=== PATIENT | female | born 1945 | race American Indian/Alaskan Native ===

== ENCOUNTER 2017-03-14 22:50 | Emergency (ER) | payer OTHER ==
[2017-03-14 23:27] VITALS: RESP 16; TEMP 98.2; O2SAT 100
[2017-03-15 01:09] LABS: BASO % 0.5 % (0.0-2.0); EOS % 0.6 % (0.0-4.0); HEMATOCRIT 36.8 % (34.0-47.0); LYMPH # 1.5 K/uL (1.0-4.3); LYMPH % 23.2 % (20.0-40.0); MEAN CELL VOLUME 89.2 fL (81.0-99.0); MEAN CORPUSCULAR HEMOGLOBIN 29.1 pg (27.0-31.0); MEAN CORPUSCULAR HGB CONC 32.6 g/dL (33.0-37.0); MEAN PLATELET VOLUME 10.4 fL (7.2-11.7); MONO # 0.4 K/uL (0.0-0.8); MONO % 5.6 % (0.0-10.0); NRBC % 0.1 % (0.0-2.0); WHITE BLOOD COUNT 6.6 K/uL (4.8-10.8)
[2017-03-15 01:21] LABS: CHLORIDE 98 mmol/L (98-107); POTASSIUM 5.1 mmol/L (3.6-5.2); SODIUM 138 mmol/L (132-148)
[2017-03-15 01:23] LABS: BILIRUBIN,TOTAL < 0.1 mg/dL (0.2-1.3); CARBON DIOXIDE 30 mmol/L (22-30); GFR AFRICAN-AMERICAN > 60
[2017-03-15 01:24] LABS: ALB/GLOB RATIO 1.4 (1.0-2.1); ALKALINE PHOSPHATASE 64 U/L (38-126); ALT/SGPT 20 U/L (9-52); AST/SGOT 17 U/L (14-36); BLOOD UREA NITROGEN 15 mg/dL (7-17); CALCIUM 9.3 mg/dl (8.6-10.4); GLUCOSE,RANDOM 166 mg/dL (65-105)
[2017-03-15 02:07] VITALS: BP 140/67; PULSE 78
--- NOTE | 2017-03-15 02:26 | C.PDOC ---
History Of Present Illness A 71 y/o female presents to the ER c/o left upper and left lateral chest wall pain earlier today. Pt notes no pain currently reporting that the pain comes and goes. Pt denies fever, chills, Shortness of breath, nausea, vomiting, palpitations, or any other complaints. Time Seen by Provider: 03/15/17 00:24 Chief Complaint (Nursing): Upper Extremity Problem/Injury History Per: Patient History/Exam Limitations: no limitations Onset/Duration Of Symptoms: Hrs Current Symptoms Are (Timing): Still Present Severity: Mild Recent travel outside of the [place]: No Additional History Per: Patient Past Medical History Reviewed: Historical Data, Nursing Documentation, Vital Signs Vital Signs: Last Vital Signs Temp 98.2 F 03/14/17 23:24 Pulse 78 03/15/17 01:30 Resp 16 03/15/17 01:30 BP 140/67 03/15/17 01:30 Pulse Ox 100 03/15/17 02:50 - Medical History PMH: Diabetes, HTN, Hyperlipidemia Family History: States: Unknown Family Hx - Social History Hx Alcohol Use: No Hx Substance Use: No - Immunization History Hx Tetanus Toxoid Vaccination: No Hx Influenza Vaccination: No Hx Pneumococcal Vaccination: No Review Of Systems Except As Marked, All Systems Reviewed And Found Negative. Constitutional: Negative for: Fever, Chills Cardiovascular: Positive for: Chest Pain (left upper and left lateral chest wall pain). Negative for: Palpitations Respiratory: Negative for: Shortness of Breath Gastrointestinal: Negative for: Nausea, Vomiting Physical Exam - Physical Exam Appears: Non-toxic, No Acute Distress Skin: Warm, Dry Head: Atraumatic, Normacephalic Eye(s): bilateral: Normal Inspection, EOMI Cardiovascular: Rhythm Regular, No Murmur Respiratory: Normal Breath Sounds, No Rales, No Wheezing Gastrointestinal/Abdominal: Soft, No Tenderness Extremity: Normal ROM, No Pedal Edema, No Deformity, No Swelling Neurological/Psych: Oriented x3, Normal Speech, Normal Cognition ED Course And Treatment - Laboratory Results Result Diagrams: 03/15/17 01:04 03/15/17 01:04 ECG: Interpreted By Me, Viewed By Me ECG Rhythm: Sinus Rhythm ECG Interpretation: Normal, No Acute Changes Interpretation Of ECG: NSR, normal tracings Rate From EC O2 Sat by Pulse Oximetry: 100 (RA) Pulse Ox Interpretation: Normal Medical Decision Making Medical Decision Making: Impression: 71 y/o c/o chest pain that began today Plans: -EKG -CXR -IV fluids -Reassess and disposition Patient is resting comfortably, is no longer having chest pain or shortness of breath. Patient has no risk factors for pulmonary emboli or DVT. Clinical presentation is not suggestive of aortic dissection. Patient is being discharged home and is being advised to follow up with physician/clinic in 1-2 days. Disposition Counseled Patient/Family Regarding: Diagnosis - Disposition Referrals: [facility] at [facility] [Outside] Disposition: HOME/ ROUTINE Disposition Time: 02:51 Condition: STABLE Instructions: Noncardiac Chest Pain (ED) - POA Present On Arrival: None - Clinical Impression Clinical Impression: Chest pain - Scribe Statement The provider has reviewed the documentation as recorded by the Scribe Sonai castro All medical record entries made by the Scribe were at my direction and personally dictated by me. I have reviewed the chart and agree that the record accurately reflects my personal performance of the history, physical exam, medical decision making, and the department course for this patient. I have also personally directed, reviewed, and agree with the discharge instructions and disposition.
--- NOTE | 2017-03-15 09:11 | RAD ---
HISTORY: chest pain COMPARISON: No prior. TECHNIQUE: Chest PA and lateral FINDINGS: LUNGS: Prominent lung markings. No evidence of focal consolidation. PLEURA: No significant pleural effusion identified. No pneumothorax apparent. CARDIOVASCULAR: Mild cardiomegaly. OSSEOUS STRUCTURES: No significant abnormalities. VISUALIZED UPPER ABDOMEN: Normal. OTHER FINDINGS: None. IMPRESSION: Mild cardiomegaly and pulmonary vascular congestion.
--- NOTE | 2017-03-17 06:44 | CARD ---
APPROVED REPORT EKG Measurement Heart [id number] <Conclusion> Normal sinus rhythm Normal ECG
== END 2017-03-15 02:58 | disposition home or self-care (01) ==
LOC: C.ER 22:50
DX: R07.9 Chest pain, unspecified (principal); I10 Essential (primary) hypertension; E78.5 Hyperlipidemia, unspecified; E11.9 Type 2 diabetes mellitus without complications

== ENCOUNTER 2017-10-20 22:45 | Inpatient (IN) | payer OTHER ==
[2017-10-20 22:46] VITALS: BMI 38.4
[2017-10-20] MEDS ORDERED: Alum-Mag Hydrox-Simethicone Susp (30 mL) PO STA (23:24)
[2017-10-20 23:38] LABS: BASO % 0.3 % (0.0-2.0); EOS % 0.3 % (0.0-4.0); HEMATOCRIT 34.4 % (34.0-47.0); LYMPH # 1.2 K/uL (1.0-4.3); LYMPH % 16.4 % (20.0-40.0); MEAN CORPUSCULAR HEMOGLOBIN 29.9 pg (27.0-31.0); MEAN CORPUSCULAR HGB CONC 34.3 g/dL (33.0-37.0); MEAN PLATELET VOLUME 9.5 fL (7.2-11.7); MONO # 0.4 K/uL (0.0-0.8); MONO % 5.1 % (0.0-10.0); RED CELL DISTRIBUTION WIDTH 13.9 % (11.5-14.5); WHITE BLOOD COUNT 7.4 K/uL (4.8-10.8)
[2017-10-20] MEDS ORDERED: Alum-Mag Hydrox-Simethicone Susp (30 mL) ONE (23:38)
[2017-10-20 23:45] LABS: MEAN CELL VOLUME 87.2 fL (81.0-99.0)
[2017-10-21] LABS: ALKALINE PHOSPHATASE 67 U/L (38-126); ALT/SGPT 18 U/L (9-52); AST/SGOT 14 U/L (14-36); BILIRUBIN,TOTAL 0.6 mg/dL (0.2-1.3); BLOOD UREA NITROGEN 11 mg/dL (7-17); CALCIUM 9.1 mg/dl (8.6-10.4); CARBON DIOXIDE 30 mmol/L (22-30); CHLORIDE 96 mmol/L (98-107); GFR AFRICAN-AMERICAN > 60; GLUCOSE,RANDOM 175 mg/dL (65-105); POTASSIUM 4.3 mmol/L (3.6-5.2); SODIUM 135 mmol/L (132-148); TOTAL PROTEIN 8.5 g/dL (6.3-8.3)
--- NOTE | 2017-10-21 00:07 | C.PDOC ---
Time Seen by Provider: 10/20/17 23:14 Chief Complaint (Nursing): Abdominal Pain History Per: Patient, Family Onset/Duration Of Symptoms: Days (about 1-2 weeks) Current Symptoms Are (Timing): Still Present Severity: Moderate Location Of Pain/Discomfort: Epigastric Quality Of Discomfort: Unable To Describe Associated Symptoms: Nausea Exacerbating Factors: Food Alleviating Factors: None Additional History Per: Prior Records Past Medical History Reviewed: Historical Data, Nursing Documentation, Vital Signs Vital Signs: Last Vital Signs Temp 99.0 F 10/20/17 22:59 Pulse 82 10/20/17 22:59 Resp 18 10/20/17 22:59 BP 160/84 H 10/20/17 22:59 Pulse Ox 96 10/21/17 00:07 - Medical History PMH: Diabetes, HTN, Hypercholesterolemia, Hyperlipidemia Family History: States: Unknown Family Hx - Social History Hx Alcohol Use: No Hx Substance Use: No - Immunization History Hx Tetanus Toxoid Vaccination: No Hx Influenza Vaccination: No Hx Pneumococcal Vaccination: No Review Of Systems Except As Marked, All Systems Reviewed And Found Negative. Constitutional: Negative for: Fever, Weakness Cardiovascular: Negative for: Chest Pain Respiratory: Negative for: Shortness of Breath Gastrointestinal: Negative for: Vomiting, Diarrhea, Melena, Hematochezia, Hematemesis Genitourinary: Negative for: Dysuria Musculoskeletal: Negative for: Neck Pain, Back Pain Skin: Negative for: Rash Neurological: Negative for: Weakness, Numbness Physical Exam - Physical Exam Appears: Non-toxic, No Acute Distress Skin: Normal Color, Warm, Dry, No Rash Head: Atraumatic, Normacephalic Eye(s): bilateral: Normal Inspection, PERRL, EOMI Neck: Normal ROM, Supple Cardiovascular: Rhythm Regular Respiratory: Normal Breath Sounds, No Accessory Muscle Use Gastrointestinal/Abdominal: Soft, Tenderness (epigastric), No Guarding, No Rebound Back: No CVA Tenderness Extremity: Normal ROM Neurological/Psych: Oriented x3, Normal Motor, Normal Sensation ED Course And Treatment - Laboratory Results Result Diagrams: 10/20/17 23:35 10/20/17 23:35 Lab Interpretation: Abnormal Interpretation Of Abnormal: Elevated Lipase O2 Sat by Pulse Oximetry: 96 Pulse Ox Interpretation: Normal Disposition - Disposition Disposition Time: 00:57 Condition: FAIR - Clinical Impression Clinical Impression: Acute pancreatitis Physician Patient Turnover Patient Signed Over To: Norman Stevenson Handoff Comments: to f/up CT abd/pelv and admit pt to hospital.
[2017-10-21] MEDS ORDERED: Sodium Chloride 0.9% 1,000 ML IV ONE (00:52)
[2017-10-21] MEDS ORDERED: Iodixanol 320 MG/ML 100 ML BOTTLE IV ONE (01:43)
--- NOTE | 2017-10-21 02:13 | CT ---
EXAM: CT Abdomen and Pelvis With Intravenous Contrast CLINICAL HISTORY: 72 years old, female; Pain; Abdominal pain; Prior surgery; Surgery type: Colon ca; Additional info: Acute pancreatitis TECHNIQUE: Axial computed tomography images of the abdomen and pelvis with intravenous contrast. All CT scans at this facility use one or more dose reduction techniques, viz.: automated exposure control; ma/kV adjustment per patient size (including targeted exams where dose is matched to indication; i.e. head); or iterative reconstruction technique. Coronal and sagittal reformatted images were created and reviewed. CONTRAST: 100 mL of [id number] administered intravenously. COMPARISON: No relevant prior studies available. FINDINGS: Lower thorax: There is minimal bibasilar atelectasis. Small hiatal hernia. ABDOMEN: Liver: There are no focal liver lesions present. Gallbladder and bile ducts: The gallbladder is normal. No calcified stones. No ductal dilation. Pancreas: The pancreatic duct is somewhat prominent measuring 4 mm proximally. It is difficult to exclude underlying lesion in the region of the pancreatic head. The pancreatic head does appear mildly prominent as well. Please correlate clinically if indicated this could be further evaluated with MRCP or ERCP. Spleen: The spleen is normal. Adrenals: The adrenal glands are normal. Kidneys and ureters: Right kidney demonstrates a few subcentimeter hypodensities which are too small to adequately characterize. There is no evidence of hydronephrosis. Stomach and bowel: The stomach is normal. Colonic constipation is present. There is no evidence of intestinal obstruction. No mucosal thickening. Appendix: No findings to suggest acute appendicitis. PELVIS: Bladder: Bladder is decompressed. Reproductive: Uterus is enlarged and heterogeneous with numerous coarse calcifications compatible with multi-fibroid uterus with calcified fibroids. ABDOMEN and PELVIS: Intraperitoneal space: There is no evidence of free intraperitoneal fluid. There is no free intraperitoneal air. Bones/joints: There are moderate degenerative changes present. No acute fracture. No dislocation. Soft tissues: There is a small fat containing periumbilical hernia. Vasculature: The aorta demonstrates mild atherosclerotic calcification. No abdominal aortic aneurysm. Lymph nodes: There is no evidence of lymphadenopathy. Other findings: Small cyst in the left upper pole measures 12 mm. IMPRESSION: 1. The pancreatic duct is somewhat prominent measuring 4 mm proximally. It is difficult to exclude underlying lesion in the region of the pancreatic head. The pancreatic head does appear mildly prominent as well. Please correlate clinically if indicated this could be further evaluated with MRCP or ERCP. 2. Additional incidental and/or chronic findings as described.
[2017-10-21 02:14] LABS: ALCOHOL SERUM < 10 mg/dl (0-10); CHOLESTEROL 139 mg/dL (0-199)
[2017-10-21] MEDS ORDERED: Sodium Chloride 0.9% 1,000 ML IV SCH (03:45)
[2017-10-21] MEDS: (Novolog) Insulin Aspart, Recombinant 100 u/ml 10 ml vial SC SCH ×4 (08:59→21:53)
[2017-10-21] MEDS ORDERED: Enoxaparin 30 mg Syringe SC SCH (10:00)
--- NOTE | 2017-10-21 10:05 | CP.PCM.CON ---
<Laurence Conrad - Last Filed: 10/21/17 14:22> History of Present Illness - History of Present Illness History of Present Illness: GI Consult note for Dr. Roman 72 year old female PMHx colon ca s/p surgical resection in 2006 at [facility], HTN, HLD, and DM2 presents with 1 week of epigastric pain, bloating, and a "growling " feeling for 1 week. Patient states the pain began with no inciting event and is not related to PO intake. She rated the pain 7/10 and described it as a burning/soreness. Patient's pain was non radiating and localized to her epigastric region. She admitted to some nausea but denied any vomiting, diarrhea , constipation, change in appetite. Patient did not try anything for the pain and reported nothing made it better or worse. Patient did not come to ED earlier as she believed it would resolve spontaneously. On encounter patient stated her pain was a 4/10 and improved since admission and she was eager to eat. On ROS she denied any fever, chills, headache, dizziness, chest pain, palpitations, SOB, cough, pain/swelling in her legs bilaterally, and weight loss. She did admit to some sweats. Patient cannot recall when she last saw her surgeon Dr. Paez and heme/onc Dr. Nai Solitario. PMHx: HTN, HLD, DM2, colon cancer s/p surgical resection in 2006 at [facility] FamHx: father with esophageal ca SocialHx: denies EtOH, tobacco, and drug use PProcedures: colonoscopy 10 years ago in 2006 and patient had multiple follow ups but cannot remember when Review of Systems - Review of Systems All systems: reviewed and no additional remarkable complaints except - Constitutional Constitutional: As Per HPI. absent: Chills, Fever, Weight Loss, Weakness - EENT Eyes: As Per HPI. absent: Blurred Vision Ears: As Per HPI. absent: Dizziness Nose/Mouth/Throat: As Per HPI. absent: Sore Throat - Cardiovascular Cardiovascular: As Per HPI. absent: Chest Pain, Dyspnea on Exertion, Edema, Palpitations - Respiratory Respiratory: As Per HPI. absent: Cough, Dyspnea, Dyspnea on Exertion - Gastrointestinal Gastrointestinal: As Per HPI, Abdominal Pain (epigastric abd pain/soreness), Bloating, Heartburn. absent: Coffee Ground Emesis, Constipation, Diarrhea, Hematemesis, Melena, Nausea, Vomiting - Genitourinary Genitourinary: As Per HPI. absent: Dysuria, Hematuria, Pyuria - Musculoskeletal Musculoskeletal: As Per HPI. absent: Back Pain, Numbness, Tingling - Integumentary Integumentary: As Per HPI. absent: Rash - Neurological Neurological: As Per HPI. absent: Dizziness, Headaches, Tingling, Weakness - Endocrine Endocrine: As Per HPI. absent: Palpitations, Polydipsia, Polyphagia, Polyuria - Hematologic/Lymphatic Hematologic: As Per HPI. absent: Easy Bleeding, Easy Bruising, Lymphadenopathy Past Patient History - Infectious Disease Hx of Infectious Diseases: None - Past Medical History & Family History Past Medical History?: Yes - Past Social History Smoking Status: Never Smoked - CARDIAC Hx Hypercholesterolemia: Yes Hx Hypertension: Yes - PULMONARY Hx Respiratory Disorders: No - NEUROLOGICAL Hx Neurological Disorder: No - HEENT Hx HEENT Problems: No - RENAL Hx Chronic Kidney Disease: No - ENDOCRINE/METABOLIC Hx Endocrine Disorders: Yes Hx Diabetes Mellitus Type 2: Yes Other/Comment: diabetes - HEMATOLOGICAL/ONCOLOGICAL Hx Blood Disorders: No - INTEGUMENTARY Hx Dermatological Problems: No - MUSCULOSKELETAL/RHEUMATOLOGICAL Hx Falls: No - GASTROINTESTINAL Hx Gastrointestinal Disorders: No - GENITOURINARY/GYNECOLOGICAL Hx Genitourinary Disorders: No - PSYCHIATRIC Hx Psychophysiologic Disorder: No Hx Substance Use: No - SURGICAL HISTORY Hx Surgeries: Yes Other/Comment: Colon CA- remission - ANESTHESIA Hx Anesthesia: Yes Hx Anesthesia Reactions: No Hx Malignant Hyperthermia: No Meds Allergies/Adverse Reactions: Allergies Allergy/AdvReac Type Severity Reaction Status Date / Time No Known Allergies Allergy Verified 10/20/17 23:08 - Medications Medications: Current Medications Carbamide Peroxide (Debrox Ear Drops) 0 ml AU BID [facility] Enoxaparin Sodium (Lovenox) 40 mg SC DAILY [facility] Sodium Chloride (Sodium Chloride 0.9%) 1,000 mls @ 70 mls/hr IV .[id number] [facility] Last Admin: 10/21/17 04:43 Dose: 70 mls/hr Insulin Aspart (Novolog) 0 unit SC ACHS [facility] PRN Reason: Protocol Lisinopril (Zestril) 30 mg PO DAILY [facility] Pantoprazole Sodium (Protonix Inj) 40 mg IVP DAILY [facility] Physical Exam - Constitutional Appears: Well, Non-toxic, No Acute Distress - Head Exam Head Exam: ATRAUMATIC, NORMAL INSPECTION, NORMOCEPHALIC - Eye Exam Eye Exam: EOMI, Normal appearance, PERRL. absent: Conjunctival injection, Scleral icterus - ENT Exam ENT Exam: Mucous Membranes Moist - Neck Exam Neck exam: Positive for: Full Rom, Normal Inspection - Respiratory Exam Respiratory Exam: Clear to Auscultation Bilateral, NORMAL BREATHING PATTERN. absent: Accessory Muscle Use, Rales, Rhonchi, Wheezes, Respiratory Distress - Cardiovascular Exam Cardiovascular Exam: REGULAR RHYTHM, RRR, +S1, +S2 - GI/Abdominal Exam GI & Abdominal Exam: Normal Bowel Sounds, Soft, Tenderness (slight to palpation in epigastric area). absent: Firm, Guarding, Rigid - Extremities Exam Extremities exam: Positive for: normal inspection, pedal pulses present. Negative for: pedal edema, tenderness - Back Exam Back exam: NORMAL INSPECTION. absent: tenderness - Neurological Exam Neurological exam: Alert, Oriented x3 - Psychiatric Exam Psychiatric exam: Normal Affect, Normal Mood - Skin Skin Exam: Dry, Intact, Normal Color, Warm Results - Vital Signs Recent Vital Signs: Last Vital Signs Temp 98.6 F 10/21/17 08:34 Pulse 80 10/21/17 08:34 Resp 20 10/21/17 08:34 BP 140/68 10/21/17 08:34 Pulse Ox 97 10/21/17 08:34 - Labs Result Diagrams: 10/20/17 23:35 10/20/17 23:35 Labs: Laboratory Results - last 24 hr 10/20/17 10/20/17 10/21/17 23:35 23:35 01:06 WBC 7.4 RBC 3.95 Hgb 11.8 Hct 34.4 MCV 87.2 D MCH 29.9 MCHC 34.3 RDW 13.9 Plt Count 130 MPV 9.5 Neut % (Auto) 77.9 H Lymph % (Auto) 16.4 L Buchanan % (Auto) 5.1 Eos % (Auto) 0.3 Baso % (Auto) 0.3 Neut # 5.7 Lymph # 1.2 Buchanan # 0.4 Eos # 0.0 Baso # 0.0 Sodium 135 Potassium 4.3 Chloride 96 L Carbon Dioxide 30 Anion Gap 14 BUN 11 Creatinine 0.7 Est GFR ( Amer) > 60 Est GFR (Non-Af Amer) > 60 Random Glucose 175 H Calcium 9.1 Total Bilirubin 0.6 AST 14 ALT 18 Alkaline Phosphatase 67 Troponin I < 0.0120 Total Protein 8.5 H Albumin 4.2 Globulin 4.4 H Albumin/Globulin Ratio 1.0 Triglycerides 78 Cholesterol 139 LDL Cholesterol Direct 74 HDL Cholesterol 46 Lipase 9589 H Alcohol, Quantitative < 10 Assessment & Plan - Assessment and Plan (Free Text) Assessment: 72 year old female PMHx colon ca s/p surgical resection in 2006 at [facility], HTN, HLD, and DM2 presents with 1 week of epigastric pain, bloating, and a "growling " feeling for 1 week Plan: - patient had elevated lipase 9589 on admission - LR @ 250cc - CT abd/pelvis: pancreatic duct in somewhat prominent measuring 4mm proximally. It is difficult to exclude underlying lesion in the region of the pancreatic head. The pancreatic head does appear mildly prominent as well. - Lipid panel WNL - f/u Abd u/s - f/u IgG4 - started patient on low fat HHD with mod consistent carb - monitor BUN and hematocrit - recommend EUS in 1 month after pancreatitis flare subsides - Heme/onc following GI will continue to follow Discussed with Dr. Jessie Conrad PGY2 <Jay Roman - Last Filed: 10/21/17 16:29> Meds - Medications Medications: Current Medications Carbamide Peroxide (Debrox Ear Drops) 0 ml AU BID [facility] Last Admin: 10/21/17 10:02 Dose: Not Given Enoxaparin Sodium (Lovenox) 40 mg SC DAILY [facility] Lactated Ringer's (Lactated Ringer's) 1,000 mls @ 250 mls/hr IV .Q4H [facility] Last Admin: 10/21/17 13:21 Dose: 250 mls/hr Insulin Aspart (Novolog) 0 unit SC ACHS [facility] PRN Reason: Protocol Last Admin: 10/21/17 11:33 Dose: Not Given Lisinopril (Zestril) 30 mg PO DAILY [facility] Pantoprazole Sodium (Protonix Inj) 40 mg IVP DAILY [facility] Last Admin: 10/21/17 10:59 Dose: 40 mg Results - Vital Signs Recent Vital Signs: Last Vital Signs Temp 98.6 F 10/21/17 15:00 Pulse 71 10/21/17 15:00 Resp 20 10/21/17 15:00 BP 135/78 10/21/17 15:00 Pulse Ox 97 10/21/17 15:00 - Labs Result Diagrams: 10/20/17 23:35 10/20/17 23:35 Labs: Laboratory Results - last 24 hr 10/20/17 10/20/17 10/21/17 23:35 23:35 01:06 WBC 7.4 RBC 3.95 Hgb 11.8 Hct 34.4 MCV 87.2 D MCH 29.9 MCHC 34.3 RDW 13.9 Plt Count 130 MPV 9.5 Neut % (Auto) 77.9 H Lymph % (Auto) 16.4 L Buchanan % (Auto) 5.1 Eos % (Auto) 0.3 Baso % (Auto) 0.3 Neut # 5.7 Lymph # 1.2 Buchanan # 0.4 Eos # 0.0 Baso # 0.0 Sodium 135 Potassium 4.3 Chloride 96 L Carbon Dioxide 30 Anion Gap 14 BUN 11 Creatinine 0.7 Est GFR ( Amer) > 60 Est GFR (Non-Af Amer) > 60 Random Glucose 175 H Calcium 9.1 Total Bilirubin 0.6 AST 14 ALT 18 Alkaline Phosphatase 67 Troponin I < 0.0120 Total Protein 8.5 H Albumin 4.2 Globulin 4.4 H Albumin/Globulin Ratio 1.0 Triglycerides 78 Cholesterol 139 LDL Cholesterol Direct 74 HDL Cholesterol 46 Lipase 9589 H Alcohol, Quantitative < 10 Attending/Attestation - Attestation I have personally seen and examined this patient.: Yes I have fully participated in the care of the patient.: Yes I have reviewed all pertinent clinical information: Yes Notes (Text): 10/21/17 16:27 72 year old female h/o colon cancer s/p resection, HTN, HLD, DM, Obesity admitted with epigastric pain 2/2 acute pancreatitis. 1. Acute pancreatitis 2. Pancreatic duct dilation Plan: - recommend aggressive IV hydration with LR as above x 24 hours,then reduce to maintenance fluids -advance to low fat diet since she is pain free -uncertain etiology, check US abdomen r/o gallstones and IGG4 -she will need outpatient eus in 1 month to r/o underlying panc lesion
[2017-10-21] MEDS: Lactated Ringer's 1,000 ML IV SCH ×3 (13:21→20:39)
--- NOTE | 2017-10-21 13:34 | CP.PCM.CON ---
History of Present Illness - History of Present Illness History of Present Illness: 72 year old female with a history of DM, HTN, HL, colon cancer s/p surgical resection in 2006 at [facility], admitted with pancreatitis and possible pancreatic head mass. The patient reports to epigastric pain associated with nausea for about 3-4 days. She has not had much of an appetite but denies weightloss. A CT scan suggested a possible pancreatic head mass. Pat medical history: DM, HTN, HL, colon cancer s/p surgical resection in 2006 at [facility] Past surgical history: Colon resection Family history: Denies hematologic and oncologic problems Social history: Denies tobacco, alcohol, and illicit drug use. Allergies: NKA Review of systems: All remaining review of systems including HEENT, cardiovacular, respiratory, gastrointestinal, genitoruinary, musculoskeletal, dermatologic, neurologic, and psychiatric are negative unless mentioned in the HPI. Past Patient History - Infectious Disease Hx of Infectious Diseases: None - Past Medical History & Family History Past Medical History?: Yes - Past Social History Smoking Status: Never Smoked - CARDIAC Hx Hypercholesterolemia: Yes Hx Hypertension: Yes - PULMONARY Hx Respiratory Disorders: No - NEUROLOGICAL Hx Neurological Disorder: No - HEENT Hx HEENT Problems: No - RENAL Hx Chronic Kidney Disease: No - ENDOCRINE/METABOLIC Hx Endocrine Disorders: Yes Hx Diabetes Mellitus Type 2: Yes Other/Comment: diabetes - HEMATOLOGICAL/ONCOLOGICAL Hx Blood Disorders: No - INTEGUMENTARY Hx Dermatological Problems: No - MUSCULOSKELETAL/RHEUMATOLOGICAL Hx Falls: No - GASTROINTESTINAL Hx Gastrointestinal Disorders: No - GENITOURINARY/GYNECOLOGICAL Hx Genitourinary Disorders: No - PSYCHIATRIC Hx Psychophysiologic Disorder: No Hx Substance Use: No - SURGICAL HISTORY Hx Surgeries: Yes Other/Comment: Colon CA- remission - ANESTHESIA Hx Anesthesia: Yes Hx Anesthesia Reactions: No Hx Malignant Hyperthermia: No Meds Allergies/Adverse Reactions: Allergies Allergy/AdvReac Type Severity Reaction Status Date / Time No Known Allergies Allergy Verified 10/20/17 23:08 - Medications Medications: Current Medications Carbamide Peroxide (Debrox Ear Drops) 0 ml AU BID [facility] Last Admin: 10/21/17 10:02 Dose: Not Given Enoxaparin Sodium (Lovenox) 40 mg SC DAILY [facility] Lactated Ringer's (Lactated Ringer's) 1,000 mls @ 250 mls/hr IV .Q4H [facility] Last Admin: 10/21/17 13:21 Dose: 250 mls/hr Insulin Aspart (Novolog) 0 unit SC ACHS [facility] PRN Reason: Protocol Last Admin: 10/21/17 11:33 Dose: Not Given Lisinopril (Zestril) 30 mg PO DAILY [facility] Pantoprazole Sodium (Protonix Inj) 40 mg IVP DAILY [facility] Last Admin: 10/21/17 10:59 Dose: 40 mg Physical Exam - Head Exam Head Exam: ATRAUMATIC - Eye Exam Eye Exam: Normal appearance - ENT Exam ENT Exam: Mucous Membranes Dry - Respiratory Exam Respiratory Exam: NORMAL BREATHING PATTERN - Cardiovascular Exam Cardiovascular Exam: +S1, +S2 - GI/Abdominal Exam GI & Abdominal Exam: Normal Bowel Sounds - Neurological Exam Neurological exam: Oriented x3 - Psychiatric Exam Psychiatric exam: Normal Affect, Normal Mood Results - Vital Signs Recent Vital Signs: Last Vital Signs Temp 98.6 F 10/21/17 08:34 Pulse 80 10/21/17 08:34 Resp 20 10/21/17 08:34 BP 140/68 10/21/17 08:34 Pulse Ox 97 10/21/17 08:34 - Labs Result Diagrams: 10/22/17 08:33 10/22/17 08:33 Labs: Laboratory Results - last 24 hr 10/20/17 10/20/17 10/21/17 23:35 23:35 01:06 WBC 7.4 RBC 3.95 Hgb 11.8 Hct 34.4 MCV 87.2 D MCH 29.9 MCHC 34.3 RDW 13.9 Plt Count 130 MPV 9.5 Neut % (Auto) 77.9 H Lymph % (Auto) 16.4 L Castro % (Auto) 5.1 Eos % (Auto) 0.3 Baso % (Auto) 0.3 Neut # 5.7 Lymph # 1.2 Castro # 0.4 Eos # 0.0 Baso # 0.0 Sodium 135 Potassium 4.3 Chloride 96 L Carbon Dioxide 30 Anion Gap 14 BUN 11 Creatinine 0.7 Est GFR ( Amer) > 60 Est GFR (Non-Af Amer) > 60 Random Glucose 175 H Calcium 9.1 Total Bilirubin 0.6 AST 14 ALT 18 Alkaline Phosphatase 67 Troponin I < 0.0120 Total Protein 8.5 H Albumin 4.2 Globulin 4.4 H Albumin/Globulin Ratio 1.0 Triglycerides 78 Cholesterol 139 LDL Cholesterol Direct 74 HDL Cholesterol 46 Lipase 9589 H Alcohol, Quantitative < 10 Assessment & Plan (1) Pancreatic abnormality Assessment and Plan: GI evaluation ? related to pancreatitis Status: Acute (2) Anemia Assessment and Plan: mild will check iron, b12, folate stores Thank you for this interesting consult. Status: Acute
--- NOTE | 2017-10-21 19:39 | US ---
EXAM: US Abdomen Complete EXAM DATE/TIME: Exam ordered 10/21/2017 12:46 PM CLINICAL HISTORY: 72 years old, female; Pain; Abdominal pain; Generalized; Patient HX: Panc head limited seen . pt had CT today please see CT report; Additional info: Abd pain TECHNIQUE: Real-time ultrasound of the abdomen (complete) with image documentation. COMPARISON: CT - ABD PELVIS IV CONTRAST ONLY 2017-10-21 01:48 FINDINGS: Liver: The liver measures 14.7 cm in craniocaudal span. There is normal blood flow direction in the main portal vein. The echotexture of the liver is mildly increased. No intrahepatic bile duct dilation. Gallbladder: Unremarkable. No gallstones. Common bile duct: The common bile duct measures 3 mm. No stones. No dilation. Pancreas: The pancreatic duct at the level of the neck of the pancreas measures 0.36 cm. The inferior and medial borders of the pancreatic head are not well seen. Kidneys: The right kidney measures 8.7 x 3.7 x 4.3 cm. The left kidney measures 9.4 x 4.5 x 4.4 cm. A simple cyst is seen in the upper pole the left kidney measuring 1.7 cm in maximal diameter. No stones. No hydronephrosis. Spleen: The spleen measures 12 cm in craniocaudal span. Aorta: Unremarkable. No aneurysm. Inferior vena cava: Unremarkable. IMPRESSION: 1. Dilatation of the pancreatic duct. Differential diagnostic considerations include distal stricture or neoplasm. Note is made that the inferior and medial border of the pancreas is not clearly delineated due to bowel gas. 2. Mildly echogenic liver suggests underlying fatty infiltration. 3. Left renal cyst.
--- NOTE | 2017-10-21 20:16 | CP.PCM.HP ---
History of Present Illness - History of Present Illness History of Present Illness: 72 yo F with PMH of DM, HTN, HLD, h/o Colon Ca presents to ED with epigastric abdominal pain ongoing for 1-2 weeks with associated nausea. Pt denies fever, chills, chest pain, dyspnea, vomiting or diarrhea. Pt noted to have lipase of [address] abdomen done and significant for suspicious pancreatic duct lesion. Present on Admission - Present on Admission Any Indicators Present on Admission: No Review of Systems - Gastrointestinal Gastrointestinal: Abdominal Pain Past Patient History - Infectious Disease Hx of Infectious Diseases: None - Past Medical History & Family History Past Medical History?: Yes - Past Social History Smoking Status: Never Smoked - CARDIAC Hx Hypercholesterolemia: Yes Hx Hypertension: Yes - PULMONARY Hx Respiratory Disorders: No - NEUROLOGICAL Hx Neurological Disorder: No - HEENT Hx HEENT Problems: No - RENAL Hx Chronic Kidney Disease: No - ENDOCRINE/METABOLIC Hx Endocrine Disorders: Yes Hx Diabetes Mellitus Type 2: Yes Other/Comment: diabetes - HEMATOLOGICAL/ONCOLOGICAL Hx Blood Disorders: No - INTEGUMENTARY Hx Dermatological Problems: No - MUSCULOSKELETAL/RHEUMATOLOGICAL Hx Falls: No - GASTROINTESTINAL Hx Gastrointestinal Disorders: No - GENITOURINARY/GYNECOLOGICAL Hx Genitourinary Disorders: No - PSYCHIATRIC Hx Psychophysiologic Disorder: No Hx Substance Use: No - SURGICAL HISTORY Hx Surgeries: Yes Other/Comment: Colon CA- remission - ANESTHESIA Hx Anesthesia: Yes Hx Anesthesia Reactions: No Hx Malignant Hyperthermia: No Meds Allergies/Adverse Reactions: Allergies Allergy/AdvReac Type Severity Reaction Status Date / Time No Known Allergies Allergy Verified 10/20/17 23:08 Physical Exam - Constitutional Appears: Well - Head Exam Head Exam: ATRAUMATIC, NORMAL INSPECTION, NORMOCEPHALIC - Eye Exam Eye Exam: EOMI, Normal appearance, PERRL Pupil Exam: NORMAL ACCOMODATION, PERRL - ENT Exam ENT Exam: Mucous Membranes Moist, Normal Exam - Neck Exam Neck exam: Positive for: Normal Inspection - Respiratory Exam Respiratory Exam: Decreased Breath Sounds - Cardiovascular Exam Cardiovascular Exam: REGULAR RHYTHM, +S1, +S2 - GI/Abdominal Exam GI & Abdominal Exam: Diminished Bowel Sounds, Soft - Rectal Exam Rectal Exam: Deferred Results - Vital Signs Recent Vital Signs: Last Vital Signs Temp 98.6 F 10/21/17 15:00 Pulse 71 10/21/17 15:00 Resp 20 10/21/17 15:00 BP 135/78 10/21/17 15:00 Pulse Ox 97 10/21/17 15:00 - Labs Result Diagrams: 10/22/17 08:33 10/22/17 08:33 Labs: Laboratory Results - last 24 hr 10/20/17 10/20/17 10/21/17 23:35 23:35 01:06 WBC 7.4 RBC 3.95 Hgb 11.8 Hct 34.4 MCV 87.2 D MCH 29.9 MCHC 34.3 RDW 13.9 Plt Count 130 MPV 9.5 Neut % (Auto) 77.9 H Lymph % (Auto) 16.4 L [place] % (Auto) 5.1 Eos % (Auto) 0.3 Baso % (Auto) 0.3 Neut # 5.7 Lymph # 1.2 [place] # 0.4 Eos # 0.0 Baso # 0.0 Sodium 135 Potassium 4.3 Chloride 96 L Carbon Dioxide 30 Anion Gap 14 BUN 11 Creatinine 0.7 Est GFR ( Amer) > 60 Est GFR (Non-Af Amer) > 60 POC Glucose (mg/dL) Random Glucose 175 H Calcium 9.1 Total Bilirubin 0.6 AST 14 ALT 18 Alkaline Phosphatase 67 Troponin I < 0.0120 Total Protein 8.5 H Albumin 4.2 Globulin 4.4 H Albumin/Globulin Ratio 1.0 Triglycerides 78 Cholesterol 139 LDL Cholesterol Direct 74 HDL Cholesterol 46 Lipase 9589 H Alcohol, Quantitative < 10 10/21/17 16:42 WBC RBC Hgb Hct MCV MCH MCHC RDW Plt Count MPV Neut % (Auto) Lymph % (Auto) [place] % (Auto) Eos % (Auto) Baso % (Auto) Neut # Lymph # [place] # Eos # Baso # Sodium Potassium Chloride Carbon Dioxide Anion Gap BUN Creatinine Est GFR ( Amer) Est GFR (Non-Af Amer) POC Glucose (mg/dL) 116 H Random Glucose Calcium Total Bilirubin AST ALT Alkaline Phosphatase Troponin I Total Protein Albumin Globulin Albumin/Globulin Ratio Triglycerides Cholesterol LDL Cholesterol Direct HDL Cholesterol Lipase Alcohol, Quantitative Assessment & Plan (1) Acute pancreatitis Status: Acute (2) Anemia Status: Acute (3) Pancreatic abnormality Status: Acute (4) Cerumen impaction Status: Acute (5) Chest pain Status: Acute (6) Dizziness Status: Acute (7) Paronychia Status: Acute (8) Pedal edema Status: Acute - Assessment and Plan (Free Text) Plan: CT abd/pelvis results reviewed ivf hydration diet as ordered heme/onc dr mercado gi dr lebron f/u labs monitor lipase tino management as ordered
[2017-10-22] MEDS: Lactated Ringer's 1,000 ML IV SCH ×11 (00:45→20:13)
--- NOTE | 2017-10-22 06:28 | CP.PCM.PN ---
<Laurence Conrad - Last Filed: 10/22/17 08:46> Subjective - Date & Time of Evaluation Date of Evaluation: 10/22/17 Time of Evaluation: 08:46 - Subjective Subjective: PGY2 GI Note for Dr. Erwin Patient seen and examined at bedside. As per nursing no acute events overnight. Patient tolerated diet yesterday and reports abdominal pain and bloating has improved. She also reported her nausea has improved and she denied any vomiting. Patient has been making good urine but has not had a BM. Denied fever , chills, headache, dizziness, chest pain, palpitations, SOB, cough, pain/ swelling in her legs bilaterally. Objective - Vital Signs/Intake and Output Vital Signs (last 24 hours): Temp Pulse Resp BP Pulse Ox 97.8 F 76 20 147/76 96 10/22/17 00:00 10/22/17 00:00 10/22/17 00:00 10/22/17 00:00 10/22/17 00:00 Intake and Output: 10/21/17 10/22/17 18:59 06:59 Intake Total 1950 Balance 1950 - Medications Medications: Current Medications Carbamide Peroxide (Debrox Ear Drops) 0 ml AU BID [facility] Last Admin: 10/21/17 17:24 Dose: Not Given Enoxaparin Sodium (Lovenox) 40 mg SC DAILY [facility] Lactated Ringer's (Lactated Ringer's) 1,000 mls @ 250 mls/hr IV .Q4H [facility] Last Admin: 10/22/17 02:27 Dose: 250 mls/hr Insulin Aspart (Novolog) 0 unit SC ACHS [facility] PRN Reason: Protocol Last Admin: 10/21/17 21:53 Dose: Not Given Lisinopril (Zestril) 30 mg PO DAILY [facility] Pantoprazole Sodium (Protonix Inj) 40 mg IVP DAILY [facility] Last Admin: 10/21/17 10:59 Dose: 40 mg - Labs Labs: 10/20/17 23:35 10/20/17 23:35 - Constitutional Appears: Non-toxic, No Acute Distress - Head Exam Head Exam: ATRAUMATIC, NORMAL INSPECTION, NORMOCEPHALIC - Eye Exam Eye Exam: EOMI, Normal appearance, PERRL. absent: Conjunctival injection, Scleral icterus Pupil Exam: NORMAL ACCOMODATION - ENT Exam ENT Exam: Mucous Membranes Moist - Neck Exam Neck Exam: Full ROM, Normal Inspection. absent: Tenderness - Respiratory Exam Respiratory Exam: Clear to Ausculation Bilateral, NORMAL BREATHING PATTERN. absent: Accessory Muscle Use, Rales, Rhonchi, Wheezes, Respiratory Distress - Cardiovascular Exam Cardiovascular Exam: REGULAR RHYTHM, RRR, +S1, +S2. absent: Murmur - GI/Abdominal Exam GI & Abdominal Exam: Soft, Tenderness (less than examination of the prior day in epigastric area), Normal Bowel Sounds. absent: Firm, Guarding, Rigid - Extremities Exam Extremities Exam: Normal Capillary Refill, Normal Inspection. absent: Pedal Edema, Tenderness - Neurological Exam Neurological Exam: Alert, Awake, Oriented x3 - Psychiatric Exam Psychiatric exam: Normal Affect, Normal Mood - Skin Skin Exam: Dry, Intact, Normal Color, Warm Assessment and Plan - Assessment and Plan (Free Text) Assessment: 72 year old female PMHx colon ca s/p surgical resection in 2006 at [facility], HTN, HLD, and DM2 presents with 1 week of epigastric pain and bloating for 1 week 1. Acute pancreatitis 2. Pancreatic duct dilation Plan: - patient had elevated lipase 9589 on admission --> 3051 - LR @ 250cc - CT abd/pelvis: pancreatic duct in somewhat prominent measuring 4mm proximally. It is difficult to exclude underlying lesion in the region of the pancreatic head. The pancreatic head does appear mildly prominent as well. - Abd u/s: dilatation of the pancreatic duct. Differential diagnostic considerations include distal stricture/neoplasm. Note is made of the inferior and medial border of the pancreas is not clearly delineated due to bowel gas. Mildly echogenic liver suggests underlying fatty infiltration. Left renal cyst. - Lipid panel WNL - f/u IgG4 as outpatient - f/u Immunofixation, kappa/lambda, protein electrophoresis as outpatient - patient tolerating low fat HHD with mod consistent carb - monitor BUN and hematocrit - Recommend EUS in 1 month after pancreatitis flare subsides - Heme/onc following GI will sign off at this time Please reconsult as needed Discussed with Dr. Rip Conrad PGY2 <Bj Erwin - Last Filed: 10/22/17 13:45> Objective - Vital Signs/Intake and Output Vital Signs (last 24 hours): Temp Pulse Resp BP Pulse Ox 98 F 77 20 135/72 96 10/22/17 08:00 10/22/17 08:00 10/22/17 08:00 10/22/17 08:00 10/22/17 08:00 Intake and Output: 10/22/17 10/22/17 06:59 18:59 Intake Total 1949 1999 Balance 1950 1999 - Medications Medications: Current Medications Carbamide Peroxide (Debrox Ear Drops) 0 ml AU BID [facility] Last Admin: 10/21/17 17:24 Dose: Not Given Enoxaparin Sodium (Lovenox) 40 mg SC DAILY [facility] Last Admin: 10/22/17 10:58 Dose: 40 mg Lactated Ringer's (Lactated Ringer's) 1,000 mls @ 250 mls/hr IV .Q4H [facility] Last Admin: 10/22/17 11:12 Dose: 250 mls/hr Insulin Aspart (Novolog) 0 unit SC ACHS [facility] PRN Reason: Protocol Last Admin: 10/22/17 12:11 Dose: Not Given Lisinopril (Zestril) 30 mg PO DAILY [facility] Last Admin: 10/22/17 10:58 Dose: 30 mg Pantoprazole Sodium (Protonix Inj) 40 mg IVP DAILY [facility] Last Admin: 10/22/17 10:58 Dose: 40 mg - Labs Labs: 10/22/17 08:33 10/22/17 08:33 Attending/Attestation - Attestation I have personally seen and examined this patient.: Yes I have fully participated in the care of the patient.: Yes I have reviewed all pertinent clinical information, including history, physical exam and plan: Yes Notes (Text): 10/22/17 13:40 I have seen and examined patient with medical scientific liaison and GI fellow. No acute events overnight, her abdominal pain has resolved. She is seen sitting in chair at bedside eating lunch. She denies nausea, vomiting, fever/chills. Review of vitals from today are normal. HTN / DM History of colon cancer s/p resection Abdominal pain - acute pancreatitis of unclear etiology CT imaging reviewed by me showing proximal PD dilation - Diet as tolerated - LFTs normal, continue to monitor - Awaiting IGG4 for evaluation of autoimmune component - Patient would benefit from elective outpatient EUS for further evaluation of acute pancreatitis 1-2 months following resolution of acute symptoms. No further planned intervention, from GI standpoint ok to discharge home with further outpatient follow up. Please reconsult as necessary, thank you.
[2017-10-22] MEDS: (Novolog) Insulin Aspart, Recombinant 100 u/ml 10 ml vial SC SCH ×4 (08:17→21:27)
[2017-10-22 08:42] LABS: MEAN CELL VOLUME 87.3 fL (81.0-99.0); MEAN CORPUSCULAR HEMOGLOBIN 29.9 pg (27.0-31.0); MEAN CORPUSCULAR HGB CONC 34.3 g/dL (33.0-37.0); MEAN PLATELET VOLUME 9.9 fL (7.2-11.7); RED CELL DISTRIBUTION WIDTH 13.7 % (11.5-14.5); WHITE BLOOD COUNT 4.6 K/uL (4.8-10.8)
[2017-10-22 09:13] LABS: AMYLASE 221 U/L (30-110)
[2017-10-22 09:20] LABS: ALB/GLOB RATIO 1.3 (1.0-2.1); ALKALINE PHOSPHATASE 55 U/L (38-126); ALT/SGPT 14 U/L (9-52); AST/SGOT 13 U/L (14-36); BILIRUBIN,TOTAL 0.6 mg/dL (0.2-1.3); BLOOD UREA NITROGEN 8 mg/dL (7-17); CALCIUM 8.4 mg/dl (8.6-10.4); CARBON DIOXIDE 28 mmol/L (22-30); CHLORIDE 102 mmol/L (98-107); GFR AFRICAN-AMERICAN > 60; GLUCOSE,RANDOM 130 mg/dL (65-105); SODIUM 137 mmol/L (132-148); TOTAL PROTEIN 6.3 g/dL (6.3-8.3)
[2017-10-22] MEDS: Enoxaparin 40 mg Syringe SC SCH (10:58)
--- NOTE | 2017-10-22 11:16 | CP.PCM.PN ---
Subjective - Date & Time of Evaluation Date of Evaluation: 10/22/17 Time of Evaluation: 11:13 - Subjective Subjective: Progress Note for Dr. Lama's Service Patient seen and examined at bedside. She is tolerating her diet, no nausea or vomiting. She reports improved abdominal pain and bloating. Patient has not had a BM. No acute events overnight. She denies F/C/N/V/D/C/CP/SOB. Objective - Vital Signs/Intake and Output Vital Signs (last 24 hours): Temp Pulse Resp BP Pulse Ox 98 F 77 20 135/72 96 10/22/17 08:00 10/22/17 08:00 10/22/17 08:00 10/22/17 08:00 10/22/17 08:00 Intake and Output: 10/22/17 10/22/17 06:59 18:59 Intake Total 1950 1999 Balance 1950 1999 - Medications Medications: Current Medications Carbamide Peroxide (Debrox Ear Drops) 0 ml AU BID [facility] Last Admin: 10/21/17 17:24 Dose: Not Given Enoxaparin Sodium (Lovenox) 40 mg SC DAILY [facility] Last Admin: 10/22/17 10:58 Dose: 40 mg Lactated Ringer's (Lactated Ringer's) 1,000 mls @ 250 mls/hr IV .Q4H [facility] Last Admin: 10/22/17 10:59 Dose: Not Given Insulin Aspart (Novolog) 0 unit SC ACHS [facility] PRN Reason: Protocol Last Admin: 10/22/17 08:17 Dose: Not Given Lisinopril (Zestril) 30 mg PO DAILY [facility] Last Admin: 10/22/17 10:58 Dose: 30 mg Pantoprazole Sodium (Protonix Inj) 40 mg IVP DAILY [facility] Last Admin: 10/22/17 10:58 Dose: 40 mg - Labs Labs: 10/22/17 08:33 10/22/17 08:33 Assessment and Plan - Assessment and Plan (Free Text) Plan: 1. Acute pancreatitis with Pancreatic duct dilation - GI consulted- Dr. Erwin- katerina appreciated - patient had elevated lipase on admission that is improving 9589-> 3051->2212 - Continue fluid hydration with LR @ 250cc - CT abd/pelvis: pancreatic duct measuring 4mm proximally. Cannot exclude lesion on pancreatic head. - Abd u/s: dilatation of the pancreatic duct. Distal stricture vs neoplasm. Note is made of the inferior and medial border of the pancreas is not clearly delineated due to bowel gas. Mildly echogenic liver suggests underlying fatty infiltration. Left renal cyst. - Lipid panel WNL - f/u IgG4 as outpatient - f/u Immunofixation, kappa/lambda, protein electrophoresis as outpatient - patient tolerating diet - GI recommends EUS in 1 month after pancreatitis flare subsides - Heme/onc consulted- Dr. Mcnulty- Follow up recs 2. Hx of Colon cancer s/p surgical resection - Resection done in 2006 at [facility] 3. HTN - Controlled - Lisinopril 30 mg PO daily 4. HLD - Lipid panel WNL - Takes pravastatin at home 5. DM2 - Controlled on metformin at home - ISS 6. Prophylaxis - Lovenox - Protonix This patient has been cleared from a GI standpoint to be discharged home with outpatient follow up subsequently. We will follow up recommendations from Dr. Mcnulty. If patient continues to tolerate food and there are no further complications we will plan for discharge tomorrow. Case discussed with Dr. Lama All management as per Dr. Lama
--- NOTE | 2017-10-22 16:47 | CP.PCM.PN ---
Subjective - Date & Time of Evaluation Date of Evaluation: 10/22/17 Time of Evaluation: 08:20 - Subjective Subjective: clinically same tolerating diet denies nausea or vomiting with improving abdominal pain Objective - Vital Signs/Intake and Output Vital Signs (last 24 hours): Temp Pulse Resp BP Pulse Ox 97.4 F L 71 20 140/78 99 10/22/17 15:00 10/22/17 15:00 10/22/17 15:00 10/22/17 15:00 10/22/17 15:00 Intake and Output: 10/22/17 10/22/17 06:59 18:59 Intake Total 1950 4500 Balance 1950 4500 - Medications Medications: Current Medications Carbamide Peroxide (Debrox Ear Drops) 0 ml AU BID [facility] Last Admin: 10/21/17 17:24 Dose: Not Given Enoxaparin Sodium (Lovenox) 40 mg SC DAILY [facility] Last Admin: 10/22/17 10:58 Dose: 40 mg Lactated Ringer's (Lactated Ringer's) 1,000 mls @ 250 mls/hr IV .Q4H [facility] Last Admin: 10/22/17 15:31 Dose: 250 mls/hr Insulin Aspart (Novolog) 0 unit SC ACHS [facility] PRN Reason: Protocol Last Admin: 10/22/17 12:11 Dose: Not Given Lisinopril (Zestril) 30 mg PO DAILY [facility] Last Admin: 10/22/17 10:58 Dose: 30 mg Pantoprazole Sodium (Protonix Inj) 40 mg IVP DAILY [facility] Last Admin: 10/22/17 10:58 Dose: 40 mg - Labs Labs: 10/22/17 08:33 10/22/17 08:33 - Constitutional Appears: Well - Head Exam Head Exam: ATRAUMATIC, NORMAL INSPECTION, NORMOCEPHALIC - Eye Exam Eye Exam: EOMI, Normal appearance, PERRL Pupil Exam: NORMAL ACCOMODATION, PERRL - ENT Exam ENT Exam: Mucous Membranes Moist, Normal Exam - Neck Exam Neck Exam: Full ROM, Normal Inspection. absent: Lymphadenopathy - Respiratory Exam Respiratory Exam: Decreased Breath Sounds - Cardiovascular Exam Cardiovascular Exam: REGULAR RHYTHM, +S1, +S2 - GI/Abdominal Exam GI & Abdominal Exam: Soft, Diminished Bowel Sounds - Rectal Exam Rectal Exam: Deferred Assessment and Plan (1) Acute pancreatitis Status: Acute (2) Anemia Status: Acute (3) Pancreatic abnormality Status: Acute (4) Cerumen impaction Status: Acute (5) Chest pain Status: Acute (6) Dizziness Status: Acute (7) Paronychia Status: Acute (8) Pedal edema Status: Acute - Assessment and Plan (Free Text) Plan: lipase trending down tino meds as ordered f/u with consultants heart healthy diet
--- NOTE | 2017-10-22 17:14 | CP.PCM.PN ---
Subjective - Date & Time of Evaluation Date of Evaluation: 10/22/17 Time of Evaluation: 16:25 - Subjective Subjective: Feeling better Objective - Vital Signs/Intake and Output Vital Signs (last 24 hours): Temp Pulse Resp BP Pulse Ox 97.4 F L 71 20 140/78 99 10/22/17 15:00 10/22/17 16:25 10/22/17 15:00 10/22/17 16:25 10/22/17 16:25 Intake and Output: 10/22/17 10/22/17 06:59 18:59 Intake Total 1950 4500 Balance 1950 4500 - Medications Medications: Current Medications Carbamide Peroxide (Debrox Ear Drops) 0 ml AU BID [facility] Last Admin: 10/21/17 17:24 Dose: Not Given Enoxaparin Sodium (Lovenox) 40 mg SC DAILY [facility] Last Admin: 10/22/17 10:58 Dose: 40 mg Lactated Ringer's (Lactated Ringer's) 1,000 mls @ 250 mls/hr IV .Q4H [facility] Last Admin: 10/22/17 17:00 Dose: Not Given Insulin Aspart (Novolog) 0 unit SC ACHS [facility] PRN Reason: Protocol Last Admin: 10/22/17 17:03 Dose: Not Given Lisinopril (Zestril) 30 mg PO DAILY [facility] Last Admin: 10/22/17 10:58 Dose: 30 mg Pantoprazole Sodium (Protonix Inj) 40 mg IVP DAILY [facility] Last Admin: 10/22/17 10:58 Dose: 40 mg - Labs Labs: 10/22/17 08:33 10/22/17 08:33 - Head Exam Head Exam: ATRAUMATIC - Eye Exam Eye Exam: Normal appearance - ENT Exam ENT Exam: Mucous Membranes Dry - Respiratory Exam Respiratory Exam: NORMAL BREATHING PATTERN - Cardiovascular Exam Cardiovascular Exam: +S1, +S2 - GI/Abdominal Exam GI & Abdominal Exam: Normal Bowel Sounds Assessment and Plan (1) Pancreatic abnormality Assessment & Plan: outpatient EUS in 1-2 months outpatient f/u Status: Acute (2) Anemia Status: Acute
[2017-10-23 03:29] LABS: TOTAL PROTEIN, SERUM 6.3 g/dL (6.1-8.1)
[2017-10-23] MEDS: (Novolog) Insulin Aspart, Recombinant 100 u/ml 10 ml vial SC SCH ×4 (08:05→21:36)
[2017-10-23 08:19] LABS: EOS # 0.1 K/uL (0.0-0.7); LYMPH # 1.3 K/uL (1.0-4.3); MONO # 0.2 K/uL (0.0-0.8)
[2017-10-23 08:28] LABS: BASO % 0.7 % (0.0-2.0); EOS % 1.7 % (0.0-4.0); HEMATOCRIT 30.2 % (34.0-47.0); LYMPH % 31.6 % (20.0-40.0); MEAN CELL VOLUME 86.7 fL (81.0-99.0); MEAN CORPUSCULAR HGB CONC 34.6 g/dL (33.0-37.0); MEAN PLATELET VOLUME 10.2 fL (7.2-11.7); MONO % 5.1 % (0.0-10.0); NRBC % 0.1 % (0.0-2.0); RED CELL DISTRIBUTION WIDTH 13.6 % (11.5-14.5); WHITE BLOOD COUNT 4.1 K/uL (4.8-10.8)
[2017-10-23 08:51] LABS: ALB/GLOB RATIO 1.4 (1.0-2.1); ALKALINE PHOSPHATASE 54 U/L (38-126); ALT/SGPT 14 U/L (9-52); AST/SGOT 17 U/L (14-36); BILIRUBIN,TOTAL 0.5 mg/dL (0.2-1.3); BLOOD UREA NITROGEN 6 mg/dL (7-17); CALCIUM 8.7 mg/dl (8.6-10.4); CARBON DIOXIDE 29 mmol/L (22-30); CHLORIDE 103 mmol/L (98-107); GFR AFRICAN-AMERICAN > 60; GLUCOSE,RANDOM 133 mg/dL (65-105); POTASSIUM 4.4 mmol/L (3.6-5.2); SODIUM 138 mmol/L (132-148); TOTAL PROTEIN 6.2 g/dL (6.3-8.3)
[2017-10-23] MEDS: Enoxaparin 40 mg Syringe SC SCH (09:46)
--- NOTE | 2017-10-23 12:35 | CP.PCM.PN ---
Subjective - Date & Time of Evaluation Date of Evaluation: 10/23/17 Time of Evaluation: 11:45 - Subjective Subjective: No complaints, tolerating PO Objective - Vital Signs/Intake and Output Vital Signs (last 24 hours): Temp Pulse Resp BP Pulse Ox 97.9 F 89 20 183/75 H 97 10/23/17 08:00 10/23/17 11:30 10/23/17 08:00 10/23/17 08:00 10/23/17 11:30 Intake and Output: 10/23/17 10/23/17 06:59 18:59 Intake Total 2220 Balance 2220 - Medications Medications: Current Medications Carbamide Peroxide (Debrox Ear Drops) 0 ml AU BID [facility] Last Admin: 10/23/17 09:46 Dose: 1 drop Enoxaparin Sodium (Lovenox) 40 mg SC DAILY [facility] Last Admin: 10/23/17 09:46 Dose: 40 mg Insulin Aspart (Novolog) 0 unit SC [facility] PRN Reason: Protocol Last Admin: 10/23/17 12:14 Dose: Not Given Lisinopril (Zestril) 30 mg PO DAILY [facility] Last Admin: 10/23/17 09:47 Dose: 30 mg Pantoprazole Sodium (Protonix Inj) 40 mg IVP DAILY [facility] Last Admin: 10/23/17 09:46 Dose: 40 mg - Labs Labs: 10/23/17 08:02 10/23/17 08:02 - Head Exam Head Exam: ATRAUMATIC - Eye Exam Eye Exam: Normal appearance - ENT Exam ENT Exam: Mucous Membranes Dry - Respiratory Exam Respiratory Exam: NORMAL BREATHING PATTERN - Cardiovascular Exam Cardiovascular Exam: +S1, +S2 - GI/Abdominal Exam GI & Abdominal Exam: Normal Bowel Sounds Assessment and Plan (1) Pancreatic abnormality Assessment & Plan: outpatient EUS 1-2 months outpatient f/u Status: Acute (2) Anemia Assessment & Plan: mild outpatient f/u Status: Acute
[2017-10-23] MEDS: Sodium Chloride 0.9% 1,000 ML IV SCH (14:00)
--- NOTE | 2017-10-23 21:22 | CP.PCM.PN ---
Subjective - Date & Time of Evaluation Date of Evaluation: 10/23/17 Time of Evaluation: 08:00 - Subjective Subjective: clinically same Objective - Vital Signs/Intake and Output Vital Signs (last 24 hours): Temp Pulse Resp BP Pulse Ox 98.1 F 66 20 147/78 100 10/23/17 15:08 10/23/17 15:08 10/23/17 15:08 10/23/17 15:08 10/23/17 15:08 Intake and Output: 10/23/17 10/24/17 18:59 06:59 Intake Total 450 Balance 450 - Medications Medications: Current Medications Carbamide Peroxide (Debrox Ear Drops) 0 ml AU BID [facility] Last Admin: 10/23/17 17:30 Dose: 5 drop Enoxaparin Sodium (Lovenox) 40 mg SC DAILY [facility] Last Admin: 10/23/17 09:46 Dose: 40 mg Sodium Chloride (Sodium Chloride 0.9%) 1,000 mls @ 100 mls/hr IV .Q10H [facility] Last Admin: 10/23/17 14:00 Dose: 100 mls/hr Insulin Aspart (Novolog) 0 unit SC A[facility]S [facility] PRN Reason: Protocol Last Admin: 10/23/17 17:25 Dose: Not Given Lisinopril (Zestril) 30 mg PO DAILY [facility] Last Admin: 10/23/17 09:47 Dose: 30 mg Pantoprazole Sodium (Protonix Inj) 40 mg IVP DAILY [facility] Last Admin: 10/23/17 09:46 Dose: 40 mg - Labs Labs: 10/23/17 08:02 10/23/17 08:02 Assessment and Plan (1) Acute pancreatitis Status: Acute (2) Anemia Status: Acute (3) Pancreatic abnormality Status: Acute (4) Cerumen impaction Status: Acute (5) Chest pain Status: Acute (6) Dizziness Status: Acute (7) Paronychia Status: Acute (8) Pedal edema Status: Acute
[2017-10-24] MEDS: Sodium Chloride 0.9% 1,000 ML IV SCH ×4 (01:38→14:38)
[2017-10-24 07:35] VITALS: RESP 20
[2017-10-24 07:40] LABS: BASO % 0.7 % (0.0-2.0); EOS # 0.1 K/uL (0.0-0.7); EOS % 2.2 % (0.0-4.0); HEMATOCRIT 29.3 % (34.0-47.0); LYMPH # 1.2 K/uL (1.0-4.3); LYMPH % 34.5 % (20.0-40.0); MEAN CORPUSCULAR HEMOGLOBIN 30.2 pg (27.0-31.0); MEAN CORPUSCULAR HGB CONC 34.7 g/dL (33.0-37.0); MEAN PLATELET VOLUME 10.1 fL (7.2-11.7); MONO # 0.2 K/uL (0.0-0.8); MONO % 6.2 % (0.0-10.0); RED CELL DISTRIBUTION WIDTH 13.7 % (11.5-14.5); WHITE BLOOD COUNT 3.4 K/uL (4.8-10.8)
[2017-10-24] MEDS: (Novolog) Insulin Aspart, Recombinant 100 u/ml 10 ml vial SC SCH ×3 (08:13→16:30)
[2017-10-24 08:14] LABS: ALB/GLOB RATIO 1.3 (1.0-2.1); ALKALINE PHOSPHATASE 55 U/L (38-126); ALT/SGPT 18 U/L (9-52); AST/SGOT 30 U/L (14-36); BILIRUBIN,TOTAL 0.5 mg/dL (0.2-1.3); BLOOD UREA NITROGEN 6 mg/dL (7-17); CALCIUM 8.3 mg/dl (8.6-10.4); CARBON DIOXIDE 29 mmol/L (22-30); CHLORIDE 103 mmol/L (98-107); GFR AFRICAN-AMERICAN > 60; GLUCOSE,RANDOM 126 mg/dL (65-105); SODIUM 135 mmol/L (132-148); TOTAL PROTEIN 5.9 g/dL (6.3-8.3)
[2017-10-24] MEDS: Enoxaparin 40 mg Syringe SC SCH (10:10)
--- NOTE | 2017-10-24 15:18 | CP.PCM.PN ---
Subjective - Date & Time of Evaluation Date of Evaluation: 10/24/17 Time of Evaluation: 07:40 - Subjective Subjective: clinically same Objective - Vital Signs/Intake and Output Vital Signs (last 24 hours): Temp Pulse Resp BP Pulse Ox 98.2 F 69 20 161/73 H 98 10/24/17 07:33 10/24/17 07:33 10/24/17 07:33 10/24/17 07:33 10/24/17 07:33 Intake and Output: 10/24/17 10/24/17 06:59 18:59 Intake Total 2110 450 Balance 2110 450 - Medications Medications: Current Medications Carbamide Peroxide (Debrox Ear Drops) 0 ml AU BID [facility] Last Admin: 10/24/17 10:11 Dose: 5 drop Enoxaparin Sodium (Lovenox) 40 mg SC DAILY [facility] Last Admin: 10/24/17 10:10 Dose: 40 mg Sodium Chloride (Sodium Chloride 0.9%) 1,000 mls @ 100 mls/hr IV .Q10H [facility] Last Admin: 10/24/17 14:38 Dose: 100 mls/hr Insulin Aspart (Novolog) 0 unit SC ACHS [facility] PRN Reason: Protocol Last Admin: 10/24/17 14:36 Dose: Not Given Lisinopril (Zestril) 30 mg PO DAILY [facility] Last Admin: 10/24/17 10:10 Dose: 30 mg Pantoprazole Sodium (Protonix Inj) 40 mg IVP DAILY [facility] Last Admin: 10/24/17 10:09 Dose: 40 mg - Labs Labs: 10/24/17 07:15 10/24/17 07:15 - Constitutional Appears: Well - Head Exam Head Exam: ATRAUMATIC, NORMAL INSPECTION, NORMOCEPHALIC - Eye Exam Eye Exam: EOMI, Normal appearance, PERRL Pupil Exam: NORMAL ACCOMODATION, PERRL - ENT Exam ENT Exam: Mucous Membranes Moist, Normal Exam - Neck Exam Neck Exam: Full ROM, Normal Inspection. absent: Lymphadenopathy - Respiratory Exam Respiratory Exam: Decreased Breath Sounds - Cardiovascular Exam Cardiovascular Exam: REGULAR RHYTHM, +S1, +S2 - GI/Abdominal Exam GI & Abdominal Exam: Soft, Diminished Bowel Sounds - Rectal Exam Rectal Exam: Deferred Assessment and Plan (1) Acute pancreatitis Status: Acute (2) Anemia Status: Acute (3) Pancreatic abnormality Status: Acute (4) Cerumen impaction Status: Acute (5) Chest pain Status: Acute (6) Dizziness Status: Acute (7) Paronychia Status: Acute (8) Pedal edema Status: Acute
--- NOTE | 2017-10-24 16:08 | CP.PCM.PN ---
Subjective - Date & Time of Evaluation Date of Evaluation: 10/24/17 Time of Evaluation: 16:08 - Subjective Subjective: PATIENT ADMITTED FOR ACUTE PANCREATITIS; AAOX3 DENIES ABD PAIN, VOMITING OR NAUSE; PATIENT ALSO DENIES CHEST PAIN, HEADACHE , BLURRED VION, OR SOB; NO SIGN OF DISTRESS NOTED Objective - Vital Signs/Intake and Output Vital Signs (last 24 hours): Temp Pulse Resp BP Pulse Ox 98.2 F 69 20 161/73 H 98 10/24/17 07:33 10/24/17 07:33 10/24/17 07:33 10/24/17 07:33 10/24/17 07:33 Intake and Output: 10/24/17 10/24/17 06:59 18:59 Intake Total 2110 450 Balance 2110 450 - Medications Medications: Current Medications Carbamide Peroxide (Debrox Ear Drops) 0 ml AU BID [facility] Last Admin: 10/24/17 10:11 Dose: 5 drop Enoxaparin Sodium (Lovenox) 40 mg SC DAILY [facility] Last Admin: 10/24/17 10:10 Dose: 40 mg Sodium Chloride (Sodium Chloride 0.9%) 1,000 mls @ 100 mls/hr IV .Q10H [facility] Last Admin: 10/24/17 14:38 Dose: 100 mls/hr Insulin Aspart (Novolog) 0 unit SC [facility] PRN Reason: Protocol Last Admin: 10/24/17 14:36 Dose: Not Given Lisinopril (Zestril) 30 mg PO DAILY [facility] Last Admin: 10/24/17 10:10 Dose: 30 mg Pantoprazole Sodium (Protonix Inj) 40 mg IVP DAILY [facility] Last Admin: 10/24/17 10:09 Dose: 40 mg - Labs Labs: 10/24/17 07:15 10/24/17 07:15 Assessment and Plan - Assessment and Plan (Free Text) Assessment: A/P PATIENT IS SEEN AND EXAMINED AT THE BEDSIDE; LUNG SOUND CLEAR; POSITIVE BOWEL SOUND ALL 4 QUADRANT; ABD SOFT; LATEST LIPASE IS [address] LOERA WHO CLEAR THE PATIENT TO GO HOME AND F/U FOR FURTHER TEST SUCH ERCP OR MRCP OUT PATIENT FOLLOW UP WITH DR LOERA ON THURSDAY AT HIS OFFICE AT 3 PM --CALL TO CONFIRM APPOINTMENT FOLLOW UP WITH DR KHANNA AT HIS OFFICE FOR ERCP OR MRCP OUT PATIENT CONTINUE ALL YOUR HOME MEDICATION PER MED REC CALL DR LOERA OR GO TO THE EMERGENCY ROOM IF SYMPTOMS RETURNS OR WORSENIN BP WAS HIGH 5 MG NOVASC GIVEN STAT BEFORE DC DISCUSS WITH PATIENT AND PATIENT'S DAUGHTER WHO AGREE AND VERBALIZED UNDERSTANDING
[2017-10-24 16:32] VITALS: PULSE 69; TEMP 99; O2SAT 95
--- NOTE | 2017-10-24 20:15 | CP.PCM.PN ---
Subjective - Date & Time of Evaluation Date of Evaluation: 10/24/17 Time of Evaluation: 16:00 - Subjective Subjective: Feeling better Objective - Vital Signs/Intake and Output Vital Signs (last 24 hours): Temp Pulse Resp BP Pulse Ox 99.0 F 69 20 193/94 H 95 10/24/17 16:31 10/24/17 16:31 10/24/17 16:31 10/24/17 16:31 10/24/17 16:31 Intake and Output: 10/24/17 10/25/17 18:59 06:59 Intake Total 450 Balance 450 - Medications Medications: Current Medications Carbamide Peroxide (Debrox Ear Drops) 0 ml AU BID [facility] Last Admin: 10/24/17 18:05 Dose: 1 drop Enoxaparin Sodium (Lovenox) 40 mg SC DAILY [facility] Last Admin: 10/24/17 10:10 Dose: 40 mg Sodium Chloride (Sodium Chloride 0.9%) 1,000 mls @ 100 mls/hr IV .Q10H [facility] Last Admin: 10/24/17 14:38 Dose: 100 mls/hr Insulin Aspart (Novolog) 0 unit SC ACHS [facility] PRN Reason: Protocol Last Admin: 10/24/17 16:30 Dose: Not Given Lisinopril (Zestril) 30 mg PO DAILY [facility] Last Admin: 10/24/17 10:10 Dose: 30 mg Pantoprazole Sodium (Protonix Inj) 40 mg IVP DAILY [facility] Last Admin: 10/24/17 10:09 Dose: 40 mg - Labs Labs: 10/24/17 07:15 10/24/17 07:15 - Head Exam Head Exam: ATRAUMATIC - Eye Exam Eye Exam: Normal appearance - ENT Exam ENT Exam: Mucous Membranes Dry - Respiratory Exam Respiratory Exam: NORMAL BREATHING PATTERN - Cardiovascular Exam Cardiovascular Exam: +S1, +S2 - GI/Abdominal Exam GI & Abdominal Exam: Normal Bowel Sounds Assessment and Plan (1) Pancreatic abnormality Assessment & Plan: outpatient EUS 1-2 months outpatient f/u Status: Acute (2) Anemia Status: Acute
[2017-10-24 21:10] VITALS: BP 154/74
[2017-10-25 22:46] LABS: KAPPA/LAMBDA FREE RATIO 1.75 (0.26-1.65)
[2017-10-28 09:30] LABS: ABNORMAL PROTEIN BAND 1 0.19 g/dL (None Detected); BETA 1 GLOBULIN 0.4 g/dL (0.4-0.6); BETA 2 GLOBULIN 0.5 g/dL (0.2-0.5)
== END 2017-10-24 21:00 | disposition home or self-care (01) | DRG 440 ==
LOC: C.ER 22:45 → C.3T 10-21 03:27 → C.9E 10-21 03:27
PROVIDERS: ADMIT Internal Medicine Nephrology; ATTEND Internal Medicine Nephrology
DX: K85.90 Acute pancreatitis without necrosis or infection, unspecified (principal); D64.9 Anemia, unspecified; E11.9 Type 2 diabetes mellitus without complications; E78.00 Pure hypercholesterolemia, unspecified; E66.9 Obesity, unspecified; H61.20 Impacted cerumen, unspecified ear; R60.0 Localized edema; Z85.038 Personal history of other malignant neoplasm of large intestine; I10 Essential (primary) hypertension; Z79.84 Long term (current) use of oral hypoglycemic drugs; Z79.899 Other long term (current) drug therapy; Z79.82 Long term (current) use of aspirin; Z90.49 Acquired absence of other specified parts of digestive tract; Z80.0 Family history of malignant neoplasm of digestive organs; Z68.39 Body mass index [BMI] 39.0-39.9, adult; K86.89 Other specified diseases of pancreas; R42 Dizziness and giddiness; R07.9 Chest pain, unspecified

== ENCOUNTER 2017-10-29 07:28 | Day surgery (SDC) | payer OTHER ==
[2017-10-29] MEDS ORDERED: Propofol 10 mg/ml Inj (20 ML) ONE ×2 (09:32→09:33)
[2017-10-29] MEDS ORDERED: Lidocaine Hydrochloride 5 ML INJ ONE (09:52)
[2017-10-29] MEDS ORDERED: Lactated Ringer's 500 ML IV SCH (10:00)
[2017-10-29 10:52] VITALS: TEMP 98.4
[2017-10-29 10:56] VITALS: O2SAT 99
[2017-10-29 12:58] VITALS: BP 138/80; PULSE 69; RESP 20
== END 2017-10-29 11:45 | disposition home or self-care (01) ==
LOC: C.ENDO 07:28
PROVIDERS: ATTEND Internal Medicine Gastroenterology
DX: Z12.11 Encounter for screening for malignant neoplasm of colon (principal); D12.2 Benign neoplasm of ascending colon; D12.4 Benign neoplasm of descending colon; D12.5 Benign neoplasm of sigmoid colon; Z85.038 Personal history of other malignant neoplasm of large intestine; K64.1 Second degree hemorrhoids
CPT/HCPCS: 45385; 82948; 88305; J2704; J7120

== ENCOUNTER 2017-11-13 06:16 | Day surgery (SDC) | payer OTHER ==
[2017-11-13 07:08] VITALS: BMI 39.6
[2017-11-13] MEDS ORDERED: Propofol 10 mg/ml Inj (20 ML) ONE (09:20)
[2017-11-13 09:52] VITALS: O2SAT 100
[2017-11-13] MEDS ORDERED: Lactated Ringer's 500 ML IV SCH (10:15)
[2017-11-13 10:20] VITALS: TEMP 98
[2017-11-13 11:18] VITALS: BP 120/69; PULSE 76; RESP 12
== END 2017-11-13 11:16 | disposition home or self-care (01) ==
LOC: C.ENDO 06:16
PROVIDERS: ATTEND Internal Medicine
DX: K86.89 Other specified diseases of pancreas (principal); K85.90 Acute pancreatitis without necrosis or infection, unspecified; E11.9 Type 2 diabetes mellitus without complications; I10 Essential (primary) hypertension; E66.9 Obesity, unspecified; Z68.41 Body mass index [BMI] 40.0-44.9, adult; E78.5 Hyperlipidemia, unspecified; Z79.82 Long term (current) use of aspirin; Z79.899 Other long term (current) drug therapy; Z79.84 Long term (current) use of oral hypoglycemic drugs
CPT/HCPCS: 43237; 43239; 82948; 88305; J2001; J2704; J7120

== ENCOUNTER 2018-06-19 22:29 | Observation (INO) | payer OTHER ==
[2018-06-19 22:30] VITALS: BMI 39.6
[2018-06-19 23:15] LABS: BASO # 0.1 K/uL (0.0-0.2); EOS % 0.9 % (0.0-4.0); HEMOGLOBIN 11.7 g/dL (11.0-16.0); LYMPH # 1.8 K/uL (1.0-4.3); LYMPH % 34.3 % (20.0-40.0); MEAN CELL VOLUME 88.9 fL (81.0-99.0); MEAN CORPUSCULAR HEMOGLOBIN 30.2 pg (27.0-31.0); MEAN PLATELET VOLUME 9.7 fL (7.2-11.7); MONO # 0.3 K/uL (0.0-0.8); MONO % 5.5 % (0.0-10.0); NEUT % 58.3 % (50.0-75.0); NRBC % 0.1 % (0.0-2.0); RBC 3.87 Mil/uL (3.80-5.20); RED CELL DISTRIBUTION WIDTH 14.2 % (11.5-14.5); WHITE BLOOD COUNT 5.1 K/uL (4.8-10.8)
[2018-06-19 23:22] LABS: INR 1.1; PROTHROMBIN TIME 11.8 SECONDS (9.7-12.2)
[2018-06-19 23:25] LABS: SQUAMOUS EPITHIAL 7 /hpf (0-5); URINE BACTERIA OCC (<OCC); URINE BILIRUBIN NEGATIVE (NEGATIVE); URINE BLOOD NEGATIVE (NEGATIVE); URINE CLARITY Clear (Clear); URINE COLOR Straw (YELLOW); URINE GLUCOSE (UA) NORMAL (Normal); URINE LEUKOCYTE ESTERASE NEG Leu/uL (Negative); URINE PROTEIN NEGATIVE (NEGATIVE); URINE UROBILINOGEN NORMAL mg/dL (0.2-1.0)
[2018-06-19 23:27] LABS: ALB/GLOB RATIO 1.5 (1.0-2.1); ALBUMIN 4.5 g/dL (3.5-5.0); ALT/SGPT 17 U/L (9-52); AST/SGOT 12 U/L (14-36); BLOOD UREA NITROGEN 15 mg/dL (7-17); CALCIUM 9.7 mg/dl (8.6-10.4); GFR AFRICAN-AMERICAN > 60; GFR NON-AFRICAN AMERICAN 55; HDL CHOLESTEROL 52 mg/dL (30-70)
[2018-06-19 23:39] LABS: LDL CHOLESTEROL 77 mg/dL (0-129)
--- NOTE | 2018-06-20 00:36 | C.PDOC ---
History Of Present Illness 72 year old female patient with hx of mini stroke presents to the ER with c/o left hand and arm tingly sensation for 1 day. Patient denies weakness and numbness. Time Seen by Provider: 06/19/18 22:52 Chief Complaint (Nursing): Weakness/Neurological Deficit History Per: Patient History/Exam Limitations: no limitations Onset/Duration Of Symptoms: Hrs Current Symptoms Are (Timing): Still Present Past Medical History Reviewed: Historical Data, Nursing Documentation, Vital Signs Vital Signs: Last Vital Signs Temp 98.4 F 06/22/18 08:00 Pulse 66 06/22/18 08:00 Resp 20 06/22/18 08:00 BP 195/66 H 06/22/18 08:00 Pulse Ox 100 06/23/18 18:40 - Medical History PMH: Colonic Polyps, Diabetes, HTN, Hypercholesterolemia, Hyperlipidemia, Pancreatitis Family History: States: Unknown Family Hx - Social History Hx Alcohol Use: No Hx Substance Use: No - Immunization History Hx Tetanus Toxoid Vaccination: No Hx Influenza Vaccination: No Hx Pneumococcal Vaccination: No Review Of Systems Except As Marked, All Systems Reviewed And Found Negative. Musculoskeletal: Positive for: Other (tingling on left arm and hand) Neurological: Negative for: Weakness, Numbness Physical Exam - Physical Exam Appears: Well, Non-toxic, No Acute Distress, Other (obese black female) Skin: Normal Color, Warm, Dry Head: Atraumatic Eye(s): bilateral: Normal Inspection Neck: Normal ROM, Supple Chest: Symmetrical, No Deformity Cardiovascular: Rhythm Regular Respiratory: Normal Breath Sounds Extremity: Normal ROM (x4), No Tenderness, No Calf Tenderness, Capillary Refill (<2 sec), No Deformity, No Swelling Pulses: Left Radial: Normal, Right Radial: Normal Neurological/Psych: Oriented x3, Normal Speech, Normal Motor, Normal Sensation, Normal Reflexes Gait: Steady ED Course And Treatment - Laboratory Results Result Diagrams: 06/21/18 07:12 06/21/18 07:12 Lab Interpretation: Normal (trop neg.) ECG: Interpreted By Me ECG Rhythm: Sinus Rhythm ECG Interpretation: Normal Rate From EC O2 Sat by Pulse Oximetry: 100 (RA) Pulse Ox Interpretation: Normal - Radiology CXR: Interpreted by Me CXR Interpretation: Yes: No Acute Disease - CT Scan/US Head Other Rad Studies (CT/US): Read By Radiologist, Radiology Report Reviewed CT/US Interpretation: IMPRESSION: No acute intracranial abnormality. Reevaluation Time: 00:36 Reassessment Condition: Improved NIHSS Stroke Scale 2 - Date/Time Evaluation Performed Date Performed: 06/19/18 Time Performed: 22:50 When Was NIHSS Performed: Baseline - How Severe is the Stroke Level of Consciousness: 0=Alert LOC to Questions: 0=Both comments correct LOC to commands: 0=Obeys both correctly Best Gaze: 0=Normal Visual: 0=No visual loss Facial: 0=Normal Motor Arm - Left: 0=No drift Motor Arm - Right: 0=No drift Motor Leg - Left: 0=No drift Motor Leg - Right: 0=No drift Limb Ataxia: 0=Absent Sensory: 0=Normal Best Language: 0=No aphasia Dysarthia: 0=Normal articulation Extinction & Inattention (Neglect): 0=Normal, no object Score: 0 rTPA Inclusion/Exclusion - Refusal of Treatment Patient Refused Treatment: No - Inclusion Criteria for Altepase Patient is 18 years or Older: Yes The Clinical Diagnosis of Ischemic Stroke That is Causing a Potentially Disabling Neurological Deficit: No Time of Onset is Well Established to be Less Than 270 Minute Before Treatment Would Begin: No Risk/Benefit Discussed With Patient/Family Member Present: No - Exclusion Criteria for Altepase Uncontrolled Hypertension at Time of Treatment (Systolic BP above 185 or Diastolic BP above 110 mmHg): No Known Bleeding Diathesis Including but Not Limited to: Platelets Below 100,000/ mm,PTT Above 40 sec After Heparin Use, Current Use of Oral Anitcoagulant With INR Greater Than 1.7 or PT Greater Than 15 secs: No Evidence of an Intracranial Hemorrhage: No Evidence of Major Acute Infarct With Signs Greater Than 1/3 MCA Territory: No Suspicion of Subarachnoid Hemorrhage on Pretreatment Evaluation Even if CT Head Negative For Hemorrhage: No - Warning to TPA With Conditions Condition: Stroke Serevity Too Mild Medical Decision Making Medical Decision Making: Plans: -- CT head -- EKG -- blood work -- CXR -- ecotrin -- IV fluids -- Zestril -- UA mild L hand/arm tingling with normal neuro exam ? h/o "ministroke" per pt, but normal head CT adm and neuro eval req for Randy Steward per Dr. Juárez @ 0030 Disposition Doctor Will See Patient In The: Hospital Counseled Patient/Family Regarding: Studies Performed, Diagnosis - Disposition Disposition: HOSPITALIZED Disposition Time: 00:37 Condition: GOOD - Clinical Impression Clinical Impression: Numbness and tingling in left hand - Scribe Statement The provider has reviewed the documentation as recorded by the Kim De La Torre Do Provider Attestation: All medical record entries made by the Juliocesaribe were at my direction and personally dictated by me. I have reviewed the chart and agree that the record accurately reflects my personal performance of the history, physical exam, medical decision making, and the department course for this patient. I have also personally directed, reviewed, and agree with the discharge instructions and disposition.
[2018-06-20] MEDS ORDERED: Aspirin 325 mg EC Tablets PO STA (00:41)
[2018-06-20] MEDS ORDERED: Sodium Chloride 0.9% 1,000 ML ONE (01:27)
[2018-06-20] MEDS: Sodium Chloride 0.9% 1,000 ML IV SCH ×4 (01:28→19:55)
--- NOTE | 2018-06-20 07:35 | CT ---
Date of service: 06/19/2018 PROCEDURE: CT HEAD WITHOUT CONTRAST. HISTORY: Hypertension. Left arm numbness. COMPARISON: None available. TECHNIQUE: Axial computed tomography images were obtained through the head/brain without intravenous contrast. Radiation dose: Total exam DLP = 1065 mGy-cm. This CT exam was performed using one or more of the following dose reduction techniques: Automated exposure control, adjustment of the mA and/or kV according to patient size, and/or use of iterative reconstruction technique. FINDINGS: HEMORRHAGE: No intracranial hemorrhage. BRAIN: No mass effect or edema. Scattered focal lucencies in the subcortical and periventricular white matter suggestive for chronic microvascular ischemic change. VENTRICLES: Unremarkable. No hydrocephalus. CALVARIUM: Unremarkable. PARANASAL SINUSES: Unremarkable as visualized. No significant inflammatory changes. MASTOID AIR CELLS: Unremarkable as visualized. No inflammatory changes. OTHER FINDINGS: None. IMPRESSION: Chronic microvascular ischemic change. No acute intracranial abnormality. If focal neurologic deficit persists, consider correlation with MRI. These findings were preliminarily reported at 12:31 a.m. on 06/20/[address] Artie Gonzalez from [facility].
[2018-06-20 08:00] VITALS: RESP 20
[2018-06-20] MEDS: (Novolog) Insulin Aspart, Recombinant 100 u/ml 10 ml vial SC SCH ×4 (08:12→21:44)
[2018-06-20] MEDS: Enoxaparin 30 mg Syringe SC SCH (09:40)
--- NOTE | 2018-06-20 09:46 | RAD ---
Chest x-ray single frontal view History: Code stroke. Comparison: None available. Findings: Mild venous congestion. Tortuous aorta. Degenerative changes in the spine. Upper lobe granulomatous changes and or small nodular densities. Impression: Mild venous congestion. Tortuous aorta. Degenerative changes in the spine. Upper lobe granulomatous changes and or small nodular densities.
[2018-06-20] MEDS ORDERED: [UNRECOGNIZED DRUG - OTHER] PO SCH (10:00)
[2018-06-20] MEDS ORDERED: EYE HEALTH PO SCH (10:00)
[2018-06-20] MEDS ORDERED: Ergocalciferol 50,000 Intl Units Cap PO SCH (10:00)
[2018-06-20] MEDS: Rosuvastatin Calcium 2.5 mg Tab PO SCH (21:36)
--- NOTE | 2018-06-21 03:47 | CON ---
Copied To: Radha Steward MD Attending MD: Radha Steward MD DATE: 06/20/2018 NEUROLOGY CONSULTATION REASON FOR CONSULTATION: Left hand numbness. HISTORY OF PRESENT ILLNESS: The patient is a 72-year-old female who came in with complaints of tingling and numbness in the left hand. The patient states she has been having it on and off over the last few days. Denies having any tingling or numbness in the left leg or the face. Denies any focal weakness in the arms or legs. The patient was having this tingling on and off. She decided to come to the emergency room. At the moment, she has no neurologic symptoms. REVIEW OF SYSTEMS: Denies any headaches, dizziness, chest pain, shortness of breath, abdominal pain, constipation, diarrhea, dysuria, pyuria, cough or sputum production. PAST MEDICAL HISTORY: Includes hypertension, diabetes mellitus, hypercholesterolemia, hyperlipidemia, pancreatitis. MEDICATIONS AT HOME: Included metformin, Pravachol, Zestril, vitamin D, and aspirin. ALLERGIES: NO KNOWN DRUG ALLERGIES. SOCIAL HISTORY: Denies smoking, use of alcohol, or illicit drugs. FAMILY HISTORY: Reviewed and noncontributory to the case. PHYSICAL EXAMINATION: GENERAL: The patient is an elderly pleasant female, lying on the bed, in no acute distress. VITAL SIGNS: Her blood pressure is 137/77, heart rate is 70 per minute, breathing at the rate of 16 per minute, temperature is 97.9 degrees Fahrenheit. HEENT: Normocephalic and atraumatic. NECK: Supple. There are no carotid bruits. LUNGS: Clear. CARDIOVASCULAR SYSTEM: S1 and S2 are audible. No murmurs. ABDOMEN: Soft and nontender. Bowel sounds are present. NEUROLOGIC: Mental Status: The patient is awake and alert, oriented to time, place, and person. Speech is fluent. Naming and repetition are normal. Memory examination are intact. Cranial nerve examination: Pupils 3 mm minimally reactive to light. Extraocular movements are intact. There is no facial asymmetry. Palate is upgoing bilaterally and tongue is midline. Motor examination: Tone is normal. Power is 5/5 bilaterally in all extremities. Reflex is 1+ and symmetrical. Plantars are downgoing bilaterally. Cerebellar examination: [id number] shows no dysmetria. Gait is deferred at the moment. LABORATORY DATA: Labs reviewed. Shows WBC of 5.1, hemoglobin 11.7, hematocrit 34.4, and platelets of 122. INR is 1.1. Sodium is 142, potassium 4.3, chloride 102, carbon dioxide 29, BUN of 15, creatinine 1, and glucose of 142. Her LDL is 77. Total cholesterol 172. IMPRESSION: Status post tingling and numbness in the left hand. Rule out any cerebrovascular accident. These symptoms are possibly secondary to carpal tunnel syndrome. RECOMMENDATIONS: 1. The patient to have MRI of the brain without contrast. 2. The patient's MRI of the brain shows an acute stroke, then full stroke workup to be done including carotid Doppler and echocardiogram. 3. The patient's MRI of the brain does not show any acute stroke and the patient to have electromyography and nerve conduction study, which can be done as outpatient. 4. The patient is currently on aspirin and statin, which may be continuous. 5. The patient to have frequent neuro checks. 6. Please continue supportive care and other treatment. Thank you for the opportunity to participate in the care of this patient. Radha Steward MD
[2018-06-21] MEDS: Sodium Chloride 0.9% 1,000 ML IV SCH ×3 (05:24→17:53)
[2018-06-21] MEDS: (Novolog) Insulin Aspart, Recombinant 100 u/ml 10 ml vial SC SCH ×4 (07:07→21:48)
[2018-06-21 07:26] LABS: HEMOGLOBIN 10.7 g/dL (11.0-16.0); MEAN CELL VOLUME 89.2 fL (81.0-99.0); MEAN CORPUSCULAR HEMOGLOBIN 30.1 pg (27.0-31.0); MEAN CORPUSCULAR HGB CONC 33.8 g/dL (33.0-37.0); MEAN PLATELET VOLUME 10.2 fL (7.2-11.7); RBC 3.56 Mil/uL (3.80-5.20); RED CELL DISTRIBUTION WIDTH 13.9 % (11.5-14.5); WHITE BLOOD COUNT 3.8 K/uL (4.8-10.8)
[2018-06-21 07:37] LABS: ALB/GLOB RATIO 1.4 (1.0-2.1); ALBUMIN 3.7 g/dL (3.5-5.0); ALT/SGPT 20 U/L (9-52); AST/SGOT 11 U/L (14-36); BLOOD UREA NITROGEN 11 mg/dL (7-17); CALCIUM 8.7 mg/dl (8.6-10.4); GFR AFRICAN-AMERICAN > 60; GFR NON-AFRICAN AMERICAN > 60
--- NOTE | 2018-06-21 08:49 | HP ---
Copied To: Faith Juárez MD Attending MD: Faith Juárez MD CHIEF COMPLAINT: Weakness, neurological deficit. HISTORY OF PRESENT ILLNESS: The patient is a 72-year-old female with history of mini-stroke, came to the emergency room complaining of left hand and arm tingling sensation from one day. The patient weakness and numbness was still present when I did the examination. No exacerbating or relieving factor. PAST MEDICAL HISTORY: Colonic polyp, diabetes mellitus, hypertension, hypercholesterolemia, hyperlipidemia, and pancreatitis. FAMILY HISTORY: Father and mother noncontributory. HABITS: No smoking. No drug. No ethanol. REVIEW OF SYSTEMS: The patient was seen and examined at bedside, looking comfortable. Positive for tingling on the left hand and arm as per the patient. No fever. No chills. No headache. No dizziness. No chest pain or palpitation. No hematuria or hematochezia. PHYSICAL EXAMINATION VITAL SIGNS: Temperature 98.3, pulse 72, respiratory rate 18, blood pressure 174/75, and pulse oximetry 100. HEENT: Head normocephalic, atraumatic. Eyes PERRLA. Extraocular muscles intact. Conjunctivae clear. Nose patent. Mucous membrane moist. NECK: Supple. No carotid bruit. No JVD or thyromegaly. CHEST: Bilaterally symmetrical. HEART: S1 and S2 positive. LUNGS: Clear to auscultation. ABDOMEN: Soft. Bowel sounds positive. No organomegaly. EXTREMITIES: No edema. No cyanosis. NEUROLOGICAL: The patient is awake and alert. Moving all 4 extremities. No focal deficits. LABORATORY DATA: White blood cell 5.1, hemoglobin 11.7, hematocrit 34.4, and platelets 122. Sodium 142, potassium 4.3, BUN 15, creatinine 1, and glucose 142. ASSESSMENT AND PLAN: The patient is a 72-year-old lady with thrombocytopenia, hyperglycemia, came with numbness at the left upper extremity. CAT scan of the head done. No evidence of acute infarct with signs of greater than 1.3 territory. No suspicious of subarachnoid hemorrhage on pretreatment evaluation even if CT scan of head negative for hemorrhage. The patient has history of colonic polyp, diabetes mellitus, hypertension, hypercholesterolemia, hyperlipidemia, pancreatitis, and obesity. CAT scan of the head is done and reviewed by me. We admitted the patient. Consult put with Dr. Radha Steward, neurologist, started on aspirin, Crestor, vitamin D. The patient is diabetic, started on metformin and sliding scale. Lovenox given for deep venous thrombosis prophylaxis, getting Zestril for hypertension. Repeat labs, waiting for neurologist input. We will follow. Faith Juárez MD
[2018-06-21] MEDS: Enoxaparin 30 mg Syringe SC SCH (10:03)
[2018-06-21] MEDS: Rosuvastatin Calcium 2.5 mg Tab PO SCH (21:31)
--- NOTE | 2018-06-21 23:12 | CP.PCM.CON ---
History of Present Illness - History of Present Illness History of Present Illness: Consulted for Cardiac origin chest pain and lef arm tinging Patient hx of HTN, DM and HTN Trop negative ECHO in am Past Patient History - Infectious Disease Hx of Infectious Diseases: None - Past Medical History & Family History Past Medical History?: Yes - Past Social History Smoking Status: Never Smoked - CARDIAC Hx Hypercholesterolemia: Yes Hx Hypertension: Yes - PULMONARY Hx Respiratory Disorders: No - NEUROLOGICAL HX Cerebrovascular Accident: Yes - HEENT Hx HEENT Problems: Yes - RENAL Hx Chronic Kidney Disease: No - ENDOCRINE/METABOLIC Hx Endocrine Disorders: Yes Hx Diabetes Mellitus Type 2: Yes Other/Comment: diabetes - HEMATOLOGICAL/ONCOLOGICAL Hx Blood Disorders: Yes - INTEGUMENTARY Hx Dermatological Problems: No - MUSCULOSKELETAL/RHEUMATOLOGICAL Hx Falls: No - GASTROINTESTINAL Hx Pancreatitis: Yes - GENITOURINARY/GYNECOLOGICAL Hx Genitourinary Disorders: No - PSYCHIATRIC Hx Substance Use: No - SURGICAL HISTORY Other/Comment: COLON RESECTION 2007 - ANESTHESIA Hx Anesthesia: Yes Hx Anesthesia Reactions: No Hx Malignant Hyperthermia: No Meds Allergies/Adverse Reactions: Allergies Allergy/AdvReac Type Severity Reaction Status Date / Time No Known Allergies Allergy Verified 06/19/18 22:42 - Medications Medications: Current Medications Aspirin (Aspirin Chewable) 81 mg PO DAILY [facility] Last Admin: 06/21/18 10:03 Dose: 81 mg Enoxaparin Sodium (Lovenox) 30 mg SC DAILY [facility] Last Admin: 06/21/18 10:03 Dose: 30 mg Ergocalciferol (Drisdol 50,000 Intl Units Cap) 1 cap PO QWK [facility] Last Admin: 06/20/18 09:40 Dose: 1 cap Sodium Chloride (Sodium Chloride 0.9%) 1,000 mls @ 100 mls/hr IV .Q10H [facility] Last Admin: 06/21/18 17:53 Dose: 100 mls/hr Insulin Aspart (Novolog) 0 unit SC ACHS [facility] PRN Reason: Protocol Last Admin: 06/21/18 21:48 Dose: Not Given Lisinopril (Zestril) 20 mg PO DAILY [facility] Last Admin: 06/21/18 10:03 Dose: 20 mg Lorazepam (Ativan) 2 mg IM ONCE PRN PRN Reason: Anxiety Metformin HCl (Glucophage) 500 mg PO BIDCC [facility] Last Admin: 06/21/18 17:46 Dose: 500 mg Rosuvastatin Calcium (Crestor) 2.5 mg PO HS [facility] Last Admin: 06/21/18 21:31 Dose: 2.5 mg Results - Vital Signs Recent Vital Signs: Last Vital Signs Temp 97.7 F 06/21/18 15:44 Pulse 66 06/21/18 15:44 Resp 20 06/21/18 15:44 BP 160/68 H 06/21/18 15:44 Pulse Ox 97 06/21/18 20:00 - Labs Result Diagrams: 06/21/18 07:12 06/21/18 07:12 Labs: Laboratory Results - last 24 hr 06/19/18 06/20/18 06/20/18 23:31 07:08 11:09 WBC RBC Hgb Hct MCV MCH MCHC RDW Plt Count MPV Differential Comment Sodium Potassium Chloride Carbon Dioxide Anion Gap BUN Creatinine Est GFR ( Amer) Est GFR (Non-Af Amer) POC Glucose (mg/dL) 146 H 108 116 H Random Glucose Calcium Total Bilirubin AST ALT Alkaline Phosphatase Total Protein Albumin Globulin Albumin/Globulin Ratio TSH 3rd Generation 06/20/18 06/20/18 06/21/18 16:25 21:26 07:06 WBC RBC Hgb Hct MCV MCH MCHC RDW Plt Count MPV Differential Comment Sodium Potassium Chloride Carbon Dioxide Anion Gap BUN Creatinine Est GFR ( Amer) Est GFR (Non-Af Amer) POC Glucose (mg/dL) 117 H 120 H 107 Random Glucose Calcium Total Bilirubin AST ALT Alkaline Phosphatase Total Protein Albumin Globulin Albumin/Globulin Ratio TSH 3rd Generation 06/21/18 06/21/18 06/21/18 07:12 07:12 11:20 WBC 3.8 L RBC 3.56 L Hgb 10.7 L Hct 31.7 L MCV 89.2 MCH 30.1 MCHC 33.8 RDW 13.9 Plt Count 105 L MPV 10.2 Differential Comment Sodium 145 Potassium 4.0 Chloride 107 Carbon Dioxide 28 Anion Gap 14 BUN 11 Creatinine 0.8 Est GFR ( Amer) > 60 Est GFR (Non-Af Amer) > 60 POC Glucose (mg/dL) 122 H Random Glucose 110 H Calcium 8.7 Total Bilirubin 0.4 AST 11 L ALT 20 Alkaline Phosphatase 49 Total Protein 6.5 Albumin 3.7 Globulin 2.7 Albumin/Globulin Ratio 1.4 TSH 3rd Generation 1.07 06/21/18 06/21/18 15:58 21:20 WBC RBC Hgb Hct MCV MCH MCHC RDW Plt Count MPV Differential Comment Sodium Potassium Chloride Carbon Dioxide Anion Gap BUN Creatinine Est GFR ( Amer) Est GFR (Non-Af Amer) POC Glucose (mg/dL) 111 H 125 H Random Glucose Calcium Total Bilirubin AST ALT Alkaline Phosphatase Total Protein Albumin Globulin Albumin/Globulin Ratio TSH 3rd Generation Assessment & Plan - Assessment and Plan (Free Text) Assessment: Consulted for Cardiac origin chest pain and lef arm tinging Patient hx of HTN, DM and HTN Trop negative ECHO in am
--- NOTE | 2018-06-21 23:47 | CARD ---
APPROVED REPORT Date of service: 06/20/2018 EKG Measurement Heart [id number] <Conclusion> Sinus rhythm with 1st degree AV block Otherwise normal ECG
[2018-06-22] MEDS: (Novolog) Insulin Aspart, Recombinant 100 u/ml 10 ml vial SC SCH ×2 (07:37→11:56)
[2018-06-22] MEDS: Enoxaparin 30 mg Syringe SC SCH ×2 (07:56→10:12)
[2018-06-22 08:19] VITALS: BP 195/66; PULSE 66; TEMP 98.4
[2018-06-22] MEDS: Sodium Chloride 0.9% 1,000 ML IV SCH (11:03)
--- NOTE | 2018-06-22 12:01 | MRI ---
Date of service: 06/22/2018 PROCEDURE: MRI BRAIN WITHOUT CONTRAST HISTORY: numbness left hand COMPARISON: Noncontrast head CT 06/19/2018. TECHNIQUE: Multiplanar, multisequence MR images of the brain were obtained without intravenous contrast enhancement. FINDINGS: HEMORRHAGE: None DWI: No evidence of an acute or early subacute infarction. BRAIN PARENCHYMA: Age-appropriate diffuse cerebral atrophy is reiterated with microangiopathy better defined in the cerebrum. There is no mass effect or suspicious extra-axial fluid collection identified. Corticomedullary differentiation remains adequate. The midline brain anatomy is unremarkable diffusely, including corpus callosum. VENTRICLES: Unremarkable. No hydrocephalus. CRANIUM: Unremarkable. ORBITS: Grossly unremarkable. PARANASAL SINUSES/MASTOIDS: Clear VASCULAR SYSTEM: Skull base flow voids intact. OTHER FINDINGS: None. IMPRESSION: No definite acute intracranial findings including infarction. No mass effect. Reiteration of age related neuro degenerative changes are identified as discussed above, appearing age appropriate.
--- NOTE | 2018-06-22 12:27 | VASCLAB ---
Date of service: 06/22/2018 PROCEDURE: HISTORY: CVA COMPARISON: None available. TECHNIQUE: Grayscale and duplex Doppler evaluation of the cervical carotid and vertebral arteries were performed. The common carotid, carotid bifurcations and cervical Internal Carotid Artery (ICA) and proximal External Carotid Artery (ECA) were evaluated. The vertebral arteries were evaluated for gross patency and flow direction. Report prepared by Noah Brooke, BS, RVT FINDINGS: RIGHT CAROTID ARTERIES: 1. Common Carotid Artery: No significant focal plaque formation of the right common carotid artery. Maximum Peak Systolic velocity: 66 cm/sec: End-diastolic velocity 14 cm/sec. 2. Carotid Bifurcation: plaque formation. Maximum Peak Systolic velocity: 66 cm/sec: End-diastolic velocity 13 cm/sec. 3. Internal Carotid Artery: Plaque description: 3.1. Proximal Segment: Peak systolic velocity 67 cm/sec: End-diastolic velocity 19 cm/sec - % stenosis 0-15% 3.2. Middle Segment: Peak systolic velocity 102 cm/sec: End-diastolic velocity 27 cm/sec - % stenosis 0-15% 3.3. Distal Segment: Peak systolic velocity 72 cm/sec: End-diastolic velocity 19 cm/sec - % stenosis 0-15% 4. External Carotid Artery: No significant focal plaque formation. Peak systolic velocity 69 cm/sec 5. ICA/CCA Ratio: 1.5 LEFT CAROTID ARTERIES: 1. Common Carotid Artery: No significant focal plaque formation of the left common carotid artery. Maximum Peak Systolic velocity: 67 cm/sec: End-diastolic velocity 18 cm/sec. 2. Carotid Bifurcation: plaque formation. Maximum Peak Systolic velocity: 72 cm/sec: End-diastolic velocity 19 cm/sec. 3. Internal Carotid Artery: Plaque description: 3.1. Proximal Segment: Peak systolic velocity 73 cm/sec: End-diastolic velocity 17 cm/sec - % stenosis 0-15% 3.2. Middle Segment: Peak systolic velocity 88 cm/sec: End-diastolic velocity 29 cm/sec - % stenosis 0-15% 3.3. Distal Segment: Peak systolic velocity 78 cm/sec: End-diastolic velocity 22 cm/sec - % stenosis 0-15% 4. External Carotid Artery: No significant focal plaque formation. Peak systolic velocity 52 cm/sec 5. ICA/CCA Ratio: 1.3 VERTEBRAL ARTERIES: 1. Right Vertebral Artery: The right vertebral artery flow direction is antegrade. 2. Left Vertebral Artery: The left vertebral artery flow direction is antegrade. OTHER FINDINGS: 1. Right Brachial Blood pressure: 196 mmHg. 2. Left Brachial Blood pressure: 180 mmHg. Anechoic vascularized masses noted in both neck, clinical correlation recommended. IMPRESSION: RIGHT: Duplex scan does not suggest hemodynamically significant stenosis of the right extracranial carotid arteries. LEFT: Duplex scan does not suggest hemodynamically significant stenosis of the left extracranial carotid arteries.
--- NOTE | 2018-06-22 15:40 | CP.PCM.PN ---
Subjective - Date & Time of Evaluation Date of Evaluation: 06/22/18 Time of Evaluation: 11:00 - Subjective Subjective: Alert, awake, ambulatory. No sob or chest pains. Objective - Vital Signs/Intake and Output Vital Signs (last 24 hours): Temp Pulse Resp BP Pulse Ox 98.4 F 66 20 195/66 H 99 06/22/18 08:00 06/22/18 08:00 06/22/18 08:00 06/22/18 08:00 06/22/18 10:13 Intake and Output: 06/22/18 06/22/18 06:59 18:59 Intake Total 1200 Balance 1200 - Medications Medications: Current Medications Amlodipine Besylate (Norvasc) 5 mg PO DAILY [facility] Last Admin: 06/22/18 13:46 Dose: 5 mg Aspirin (Aspirin Chewable) 81 mg PO DAILY [facility] Last Admin: 06/22/18 09:23 Dose: Not Given Enoxaparin Sodium (Lovenox) 30 mg SC DAILY [facility] Last Admin: 06/22/18 10:12 Dose: Not Given Ergocalciferol (Drisdol 50,000 Intl Units Cap) 1 cap PO QWK [facility] Last Admin: 06/20/18 09:40 Dose: 1 cap Insulin Aspart (Novolog) 0 unit SC ACHS [facility] PRN Reason: Protocol Last Admin: 06/22/18 11:56 Dose: Not Given Lisinopril (Zestril) 20 mg PO DAILY [facility] Last Admin: 06/22/18 09:24 Dose: Not Given Metformin HCl (Glucophage) 500 mg PO BIDCC [facility] Last Admin: 06/22/18 07:37 Dose: 500 mg Rosuvastatin Calcium (Crestor) 2.5 mg PO HS [facility] Last Admin: 06/21/18 21:31 Dose: 2.5 mg - Labs Labs: 06/21/18 07:12 06/21/18 07:12 PT 11.8 SECONDS (9.7-12.2) 06/19/18 23:10 INR 1.1 06/19/18 23:10 APTT 34 SECONDS (21-34) 06/19/18 23:10 Assessment and Plan - Assessment and Plan (Free Text) Assessment: 72 year old female admitted with left arm tingling, seen and examined. Alert and orientedx3, no sob or chest pains. Cleared by DR Stoddard and DR Margarita Steward, test results reviewed. Discussed with DR Juárez, plan to discharge home today. Advised to follow up in the office in 1 week, also follow up with the neurologyst in 1 week.
--- NOTE | 2018-06-22 16:55 | CARD ---
APPROVED REPORT Date of service: 06/22/2018 EXAM: Two-dimensional and M-mode echocardiogram with Doppler and color Doppler. Other Information Quality : GoodRhythm : INDICATION CVA/TIA Dizziness and Vertigo Peripheral Edema Chest Pain RISK FACTORS Hypertension Obesity Hyperlipidemia Diabetes 2D DIMENSIONS IVSd0.8 (0.7-1.1cm)LVDd5.1 (3.9-5.9cm) PWd0.7 (0.7-1.1cm)LVDs3.7 (2.5-4.0cm) FS (%) 26.9 %LVEF (%)52.2 (>50%) M-Mode DIMENSIONS RVDd1.72 (2.1-3.2cm)Left Atrium (MM)3.44 (2.5-4.0cm) IVSd0.91 (0.7-1.1cm)Aortic Root2.56 (2.2-3.7cm) LVDd5.09 (4.0-5.6cm)Aortic Cusp Exc.2.10 (1.5-2.0cm) PWd0.73 (0.7-1.1cm)FS (%) 34 % LVDs3.37 (2.0-3.8cm)LVEF (%)55 (>50%) Mitral Valve MV E Sznhwiqw164.2cm/sMV A Lskgtfil298.2cm/sE/A ratio0.7 TDI E/Lateral E'0.0E/Medial E'0.0 Tricuspid Valve TR Peak [id number]/sTR Peak Gr.[id number] LEFT VENTRICLE The left ventricle is normal size. There is normal left ventricular wall thickness. The left ventricular function is normal. The left ventricular ejection fraction is within the normal range. about 60% No regional wall motion abnormalities noted. Transmitral Doppler flow pattern is Grade I-abnormal relaxation pattern. No left ventricle thrombus noted on this study. There is no ventricular septal defect visualized. There is no left ventricular aneurysm. There is no mass noted in the left ventricle. RIGHT VENTRICLE The right ventricle is normal size. There is normal right ventricular wall thickness. The right ventricular systolic function is normal. ATRIA The left atrium size is normal. The right atrium size is normal. The interatrial septum is intact with no evidence for an atrial septal defect. AORTIC VALVE The aortic valve is normal in structure and function. No aortic regurgitation is present. There is no aortic valvular stenosis. There is no aortic valvular vegetation. MITRAL VALVE The mitral valve is normal in structure and function. There is no evidence of mitral valve prolapse. There is no mitral valve stenosis. There is mild mitral valve regurgitation noted. TRICUSPID VALVE The tricuspid valve is normal in structure and function. There is mild tricuspid valve regurgitation noted. There is no tricuspid valve prolapse or vegetation. There is no tricuspid valve stenosis. PULMONIC VALVE The pulmonary valve is normal in structure and function. There is no pulmonic valvular regurgitation. There is no pulmonic valvular stenosis. GREAT VESSELS The aortic root is normal in size. The ascending aorta is normal in size. The pulmonary artery is normal. The IVC is normal in size and collapses >50% with inspiration. PERICARDIAL EFFUSION The pericardium appears normal. There is no pleural effusion. <Conclusion> There is mild mitral valve regurgitation noted. Transmitral Doppler flow pattern is Grade I-abnormal relaxation pattern. Normal LV systolic function and wall motion.
--- NOTE | 2018-06-22 21:54 | PN ---
Copied To: Faith Juárez MD Attending MD: Faith Juárez MD DATE: 06/21/2018 SUBJECTIVE: The patient is a 72-year-old female. The patient is seen and examined at the bedside. Granddaughter is on the bedside also. Now, chest pain has gone. Left arm tingling is getting better. No fever. No chills. No nausea, vomiting, or diarrhea. No hematuria or hematochezia. No headache or dizziness. PHYSICAL EXAMINATION: VITAL SIGNS: Temperature 97.7, pulse 66, respiratory rate 20, blood pressure 116/68, and pulse oximetry 97. HEENT: Head is normocephalic and atraumatic. Eyes, PERRLA. Extraocular muscles intact. Conjunctivae clear. Nose patent. Mucous membrane moist. NECK: Supple. No carotid bruit, JVD, or thyromegaly. CHEST: Bilaterally symmetrical. HEART: S1 and S2 positive. LUNGS: Clear to auscultation. ABDOMEN: Soft. Bowel sounds present. No organomegaly. EXTREMITIES: No edema. No cyanosis. NEUROLOGICAL: The patient is awake and alert. Follows simple commands. LABORATORY DATA: White blood cell 3.8, hemoglobin 10.7, hematocrit 31.7, and platelets 105. Sodium 147, potassium 4, BUN 11, creatinine 0.8, and glucose 110. ASSESSMENT AND PLAN: Mrs. Mayelin Tellez is a 72-year-old lady with leukopenia, anemia, thrombocythemia, passively pancytopenia, hyperglycemia. Came with chest pain and left arm tingling. The patient has history of hypertension. The patient went for an echocardiography. Carotid Doppler study done. Seen by neurologist, Dr. Radha Steward. Plan is, the patient will go for MRI of the head. Discussion was done with the patient and patient's nursing staff. According to the patient, she is claustrophobic but Dr. Radha Steward already put order for 2 mg Ativan intramuscularly before MRI. The patient has obesity, modification. We will follow up. Faith Juárez MD
[2018-06-23 18:40] VITALS: O2SAT 100
== END 2018-06-22 15:48 | disposition home or self-care (01) ==
LOC: C.ER 22:29 → C.3T 06-20 00:39
PROVIDERS: ADMIT Internal Medicine; ATTEND Internal Medicine
DX: R20.0 Anesthesia of skin (principal); D47.3 Essential (hemorrhagic) thrombocythemia; E66.9 Obesity, unspecified; E78.5 Hyperlipidemia, unspecified; F40.240 Claustrophobia; I10 Essential (primary) hypertension; I65.29 Occlusion and stenosis of unspecified carotid artery; Z86.73 Personal history of transient ischemic attack (TIA), and cerebral infarction without residual deficits; Z68.41 Body mass index [BMI] 40.0-44.9, adult
CPT/HCPCS: 36415; 70450; 70551; 71045; 80053; 80061; 81001; 82948; 83036; 84443; 84484; 85025; 85027; 85610; 85730; 93005; 93306; 93880; 97110; 97162; 99285; G0378; G8978; G8979; G8980; J1650; J2060; J7030

== ENCOUNTER 2018-06-26 22:51 | Emergency (ER) | payer OTHER ==
[2018-06-26 22:52] VITALS: BMI 39.6
[2018-06-26 23:09] VITALS: BP 156/80; PULSE 77; RESP 20; TEMP 98.2; O2SAT 98
--- NOTE | 2018-06-26 23:19 | C.PDOC ---
Chief Complaint (Nursing): Upper Extremity Problem/Injury Past Medical History Vital Signs: Last Vital Signs Temp 98.2 F 06/26/18 23:04 Pulse 77 06/26/18 23:04 Resp 20 06/26/18 23:04 BP 156/80 H 06/26/18 23:04 Pulse Ox 98 06/26/18 23:04 - Medical History PMH: Colonic Polyps, Diabetes, HTN, Hypercholesterolemia, Hyperlipidemia, Pancreatitis Denies: Fractures, Chronic Kidney Disease, TIA Surgical History: Denies: Endoscopy Family History: States: Unknown Family Hx - Social History Hx Alcohol Use: No Hx Substance Use: No - Immunization History Hx Tetanus Toxoid Vaccination: No Hx Influenza Vaccination: No Hx Pneumococcal Vaccination: No ED Course And Treatment O2 Sat by Pulse Oximetry: 98 Disposition - Disposition
--- NOTE | 2018-06-27 00:33 | C.PDOC ---
History Of Present Illness The patient presents to the ED for evaluation of tingling sensation to her left hand. Patient experienced similar symptoms on 06/20 and was hospitalized. She underwent extensive workup which included MRI, and was discharged on 06/22. Patient also states she sleeps on her left side. She denies slurred speech, extremity numbness/weakness. Time Seen by Provider: 06/27/18 00:16 Chief Complaint (Nursing): Upper Extremity Problem/Injury History Per: Patient History/Exam Limitations: no limitations Onset/Duration Of Symptoms: Days Current Symptoms Are (Timing): Still Present Severity: None Pain Scale Rating Of: 0 Reports Recently: Seen In ED, Treated By A Physician, Hospitalized Recent travel outside of the [place]: No Additional History Per: Patient Past Medical History Reviewed: Historical Data, Nursing Documentation, Vital Signs Vital Signs: Last Vital Signs Temp 98.2 F 06/26/18 23:04 Pulse 77 06/26/18 23:04 Resp 20 06/26/18 23:04 BP 156/80 H 06/26/18 23:04 Pulse Ox 98 06/27/18 01:01 - Medical History PMH: Colonic Polyps, Diabetes, HTN, Hypercholesterolemia, Hyperlipidemia, Pancreatitis Denies: Fractures, Chronic Kidney Disease, TIA Surgical History: No Surg Hx Denies: Endoscopy Family History: States: Unknown Family Hx - Social History Hx Alcohol Use: No Hx Substance Use: No - Immunization History Hx Tetanus Toxoid Vaccination: No Hx Influenza Vaccination: No Hx Pneumococcal Vaccination: No Review Of Systems Constitutional: Negative for: Fever, Chills Cardiovascular: Negative for: Chest Pain, Palpitations Respiratory: Negative for: Cough, Shortness of Breath Gastrointestinal: Negative for: Nausea, Vomiting, Abdominal Pain Skin: Negative for: Rash, Lesions, Jaundice, Bruising Neurological: Positive for: Other (tingling of left hand ). Negative for: Weakness, Numbness, Change in Speech, Altered Mental Status, Headache, Dizziness Psych: Negative for: Anxiety Physical Exam - Physical Exam Appears: Non-toxic, No Acute Distress Skin: Warm, Dry Head: Normacephalic Eye(s): bilateral: Normal Inspection Oral Mucosa: Moist Neck: Supple Chest: Symmetrical, No Deformity, No Tenderness Cardiovascular: Rhythm Regular, No Murmur Respiratory: No Rales, No Rhonchi, No Wheezing Extremity: Normal ROM, Capillary Refill (less than 2 seconds ) Pulses: Left Radial: Normal, Right Radial: Normal Neurological/Psych: Oriented x3 ED Course And Treatment O2 Sat by Pulse Oximetry: 98 (on RA) Pulse Ox Interpretation: Normal Progress Note: Patient does not want any repeat bloodwork at this time. Patient is advised to follow up with Dr. Juárez within 1-2 days for further evaluation. Disposition Counseled Patient/Family Regarding: Studies Performed, Diagnosis - Disposition Referrals: Faith Juárez MD [Staff Provider] - Disposition: HOME/ ROUTINE Disposition Time: 00:30 Condition: FAIR Additional Instructions: Please return if symptoms recur Instructions: Paresthesias (DC) Forms: [employer] (Bengali) - Clinical Impression Clinical Impression: Paresthesia - Scribe Statement The provider has reviewed the documentation as recorded by the Scribe (Erica Lama) Provider Attestation: All medical record entries made by the Scribe were at my direction and personally dictated by me. I have reviewed the chart and agree that the record accurately reflects my personal performance of the history, physical exam, medical decision making, and the department course for this patient. I have also personally directed, reviewed, and agree with the discharge instructions and disposition.
== END 2018-06-27 00:49 | disposition home or self-care (01) ==
LOC: C.ER 22:51
DX: R20.2 Paresthesia of skin (principal); E11.9 Type 2 diabetes mellitus without complications; E78.00 Pure hypercholesterolemia, unspecified; I10 Essential (primary) hypertension

== ENCOUNTER 2019-03-03 08:16 | Day surgery (SDC) | payer OTHER ==
[2019-03-02 13:50] VITALS: BMI 38.4
[2019-03-03 09:40] VITALS: RESP 20; TEMP 98
--- NOTE | 2019-03-03 11:37 | CP.SDSHP ---
Same Day Surgery H & P - History Proposed Procedure: colonoscopy Pre-Op Diagnosis: history of colon cancer - Previous Medical/Surgical History Cardiac: Hypertension Endocrine/Metabolic: Diabetes Comments: hyperlipidemia - Allergies Allergies: Allergies No Known Allergies Allergy (Verified 07/21/18 21:41) - Physical Exam General Appearance: NAD Vital Signs: Vital Signs 03/03/19 09:29 Temperature 98 F Pulse Rate 71 Respiratory 20 Rate Blood Pressure 140/60 O2 Sat by Pulse 97 Oximetry Mental Status: Alert & Oriented x3 Neuro: WNL Heart: WNL Lungs: WNL GI: WNL - {Optional Preform as Required} Abdomen: WNL - Impression Pt. Evaluated Today:Candidate for Anesthesia & Procedure: Yes - Date & Time Date: 03/03/19 Time: 11:36 Short Stay Discharge - Short Stay Discharge Admitting Diagnosis/Reason for Visit: PERSONAL HISTORY OF MALIGNANT NEOPLASM OF LARGE IN Disposition: HOME/ ROUTINE Referrals: Kendra Page MD [Primary Care Provider] -
[2019-03-03] MEDS ORDERED: Propofol 10 mg/ml Inj (20 ML) ONE ×2 (11:42→12:11)
[2019-03-03] MEDS ORDERED: Midazolam 2 MG/2 ML VIAL ONE (11:46)
[2019-03-03 11:51] VITALS: O2SAT 100
[2019-03-03 13:33] VITALS: BP 116/69; PULSE 69
== END 2019-03-03 13:34 | disposition home or self-care (01) ==
LOC: C.ENDO 08:16
PROVIDERS: ATTEND Internal Medicine Gastroenterology
DX: Z12.11 Encounter for screening for malignant neoplasm of colon (principal); K63.5 Polyp of colon; K62.1 Rectal polyp; K64.1 Second degree hemorrhoids; Z85.038 Personal history of other malignant neoplasm of large intestine
CPT/HCPCS: 45380; 82948; 88305; J2250; J2704; J7040